=== PATIENT | female | born 1955 | race Caucasian/White ===

== ENCOUNTER 2018-09-30 09:33 | Emergency (ER) | payer OTHER, MEDICARE ==
[2018-09-30 09:48] VITALS: TEMP 97.6; BMI 26.3
--- NOTE | 2018-09-30 10:31 | PDOC ---
History of Present Illness - General Chief Complaint: Wheezing Stated Complaint: ASTHMA Time Seen by Provider: 09/30/18 10:28 History Source: Patient - History of Present Illness Timing/Duration: reports: other Associated Symptoms: reports: cough, shortness of breath, wheezing. denies: chest pain/soreness, fever/chills Past History - Past Medical History Allergies/Adverse Reactions: Allergies Allergy/AdvReac Type Severity Reaction Status Date / Time No Known Drug Allergies Allergy Verified 08/23/15 07:04 Home Medications: Ambulatory Orders Amlodipine Besylate [Norvasc -] 10 mg PO DAILY 01/30/15 Carvedilol 25 mg PO BID 01/30/15 Cetirizine HCl [Zyrtec -] 10 mg PO DAILY PRN 01/30/15 Digoxin [Lanoxin -] 0.125 mg PO DAILY 01/30/15 Budesonide [Pulmicort Flexhaler] 90 mcg IH BID PRN 01/31/15 Lisinopril/Hydrochlorothiazide [Lisinopril-Hctz 20-25 mg Tab] 1 each PO DAILY Albuterol 0.083% Nebulizer Eulalia [Ventolin 0.083% Nebulizer Soln -] 1 neb NEB Q6H PRN 08/09/15 Albuterol Sulfate [Proair Hfa] 8.5 gm IH DAILY PRN 09/30/18 Rivaroxaban [Xarelto -] 20 mg PO DAILY 09/30/18 Anemia: No Asthma: Yes Cancer: Yes (HX EARLY CERVICAL CA) Cardiac Disorders: Yes (AFIB) CVA: No COPD: Yes CHF: No Dementia: No Diabetes: No GI Disorders: No Disorders: No HTN: Yes Hypercholesterolemia: No Liver Disease: Yes (cirrhosis) Seizures: No Thyroid Disease: No - Surgical History Abdominal Surgery: No Appendectomy: Yes Cardiac Surgery: No Cholecystectomy: No Lung Surgery: No Neurologic Surgery: No Orthopedic Surgery: No - Immunization History Immunization Up to Date: No - Suicide/Smoking/Psychosocial Hx Smoking History: Never smoked Have you smoked in the past 12 months: No Number of Cigarettes Smoked Daily: 10 If you are a former smoker, when did you quit?: 3 years ago Information on smoking cessation initiated: No Hx Alcohol Use: No Drug/Substance Use Hx: No Substance Use Type: None Hx Substance Use Treatment: No Review of Systems - Review of Systems Constitutional: No: Chills, Fever Respiratory: Yes: Cough, Shortness of Breath, Wheezing Cardiac (ROS): No: Chest Pain *Physical Exam - Vital Signs Last Vital Signs Temp Pulse Resp BP Pulse Ox 97.6 F 67 16 111/67 95 09/30/18 09:45 09/30/18 09:45 09/30/18 09:45 09/30/18 09:45 09/30/18 09:45 - Physical Exam General Appearance: Yes: Appropriately Dressed. No: Apparent Distress HEENT: positive: Normal Voice Neck: positive: Supple Respiratory/Chest: positive: Lungs Clear, Normal Breath Sounds. negative: Respiratory Distress, Wheezing Cardiovascular: positive: Regular Rate, S1, S2 Gastrointestinal/Abdominal: positive: Soft. negative: Tender Extremity: negative: Pedal Edema Integumentary: positive: Dry, Warm Neurologic: positive: Fully Oriented, Alert, Normal Mood/Affect Moderate Sedation - Procedure Monitoring Vital Signs: Procedure Monitoring Vital Signs Temperature 97.6 F 09/30/18 09:45 Pulse Rate 67 09/30/18 09:45 Respiratory Rate 16 09/30/18 09:45 Blood Pressure 111/67 09/30/18 09:45 O2 Sat by Pulse Oximetry (%) 95 09/30/18 09:45 ED Treatment Course - LABORATORY CBC & Chemistry Diagram: 09/30/18 10:39 09/30/18 10:39 Medical Decision Making - Medical Decision Making 09/30/18 10:29 63 yo F, former smoker, COPD/asthma, not on oxygen, last admission for COPD was 2 years ago, no intubations, afib on xarelto, here w/ sob and wheezing in setting of "a cold" x 1 week per pt. No f/c. Called Dr plastic molding operator, Dr. Krishnamurthy , and was started on prednisone, which patient is currently taking, but states she continues to have some SOB and wheezing but that the reason why she came in today was for profound weakness she's had for the past several days which has improved today. Denies chest pain, lower extremity edema, abdominal pain, change in bowel movements, dysuria, fever, chills, nausea or vomiting See exam COPD/asthma flare Not improving w/ pednisone/pump/nebs at home Stable w/ clear lungs here -nebs -dose of pred today -CXR -labs -reassess 09/30/18 12:42 Pertinent labs...WBC ~13 (pt currently on prednisone). BG 200 (not a diabetic). CXR wnl. Pt reports feeling better at this time and able to ambulate without SOB. Case d/w Dr Krishnamurthy who states he will come see pt in ED 09/30/18 13:[address] Krishnamurthy who states pt can be discharged to continue her prednisone and to continue f/u with him *DC/Admit/Observation/Transfer Diagnosis at time of Disposition: SOB (shortness of breath) - Discharge Dispostion Disposition: HOME Condition at time of disposition: Improved - Referrals Referrals: Priyanka Pruitt [Primary Care Provider] - - Patient Instructions Printed Discharge Instructions: Chronic Obstructive Pulmonary Disease Additional Instructions: Continue taking medications and follow up with Dr Krishnamurthy Return if symptoms worsen You blood sugar was elevated today, please follow with your PMD for further evaluation - Post Discharge Activity
[2018-09-30] MEDS ORDERED: methylPREDNISolone NA SUCC 125 MG/2 ML VIAL IVPUSH ONE (10:54)
[2018-09-30 10:56] LABS: BASO % 0.8 % (0-2.0); EOS % 0.3 % (0-4.5); HEMATOCRIT 48.8 % (32.4-45.2); HEMOGLOBIN 16.3 GM/dL (10.7-15.3); LYMPH % 8.5 % (8-40); MCH 27.5 pg (25.7-33.7); MCHC 33.4 g/dl (32.0-36.0); MEAN CELL VOLUME 82.3 fl (80-96); MEAN PLT VOLUME 8.7 fl (7.5-11.1); MONO % 3.3 % (3.8-10.2); NEUT % 87.1 % (42.8-82.8); PLATELET COUNT 167 K/MM3 (134-434); RBC 5.93 M/mm3 (3.60-5.2); RDW 13.7 % (11.6-15.6); WHITE BLOOD COUNT 13.5 K/mm3 (4.0-10.0)
[2018-09-30 11:11] LABS: INR 1.46 (0.83-1.09); PROTHROMBIN TIME (PATIENT) 17.3 SEC (9.7-13.0)
[2018-09-30] MEDS ORDERED: ALBUTEROL SO4 2.5/IPRATROPIUM 0.5 INH SOL 3 ML VIAL.NEB. NEB ONE (11:23)
[2018-09-30] MEDS ORDERED: methylPREDNISolone NA SUCC 125 MG/2 ML VIAL ONE (11:24)
[2018-09-30 11:27] LABS: ALBUMIN 4.1 g/dl (3.4-5.0); ALK PHOS 61 U/L (45-117); ANION GAP 7 MMOL/L (8-16); BLOOD UREA NITROGEN 16 mg/dL (7-18); CALCIUM 9.8 mg/dL (8.5-10.1); CHLORIDE 94 mmol/L (98-107); CO2 31 mmol/L (21-32); CREATININE 0.8 mg/dL (0.55-1.3); GLUCOSE,RANDOM 203 mg/dL (74-106); N-TERMINAL BNP 375.2 pg/ml (5-125); POTASSIUM 4.6 mmol/L (3.5-5.1); SGOT/AST 45 U/L (15-37); SGPT/ALT 87 U/L (13-61); SODIUM 132 mmol/L (136-145); TOT PROT 8.2 g/dl (6.4-8.2)
[2018-09-30] MEDS: ALBUTEROL SO4 2.5/IPRATROPIUM 0.5 INH SOL 3 ML VIAL.NEB. NEB SCH ×4 (11:30→12:03)
[2018-09-30 13:02] LABS: URINE APPEARANCE SLCLOUDY; URINE BILIRUBIN NEGATIVE (<2.0 mg/dL); URINE COLOR YELLOW; URINE GLUCOSE (UA) NEGATIVE (NEGATIVE); URINE KETONE NEGATIVE (NEGATIVE); URINE LEUK ESTERASE 3+ (NEGATIVE); URINE NITRITE POSITIVE (NEGATIVE); URINE PROTEIN NEGATIVE (NEGATIVE); URINE UROBILINOGEN NEGATIVE mg/dL (0.2-1.0)
[2018-09-30 13:18] LABS: EPI CELLS FEW /HPF (FEW); URINE BACTERIA MODERATE /hpf (NONE SEEN); URINE MUCUS RARE
[2018-09-30 13:28] VITALS: BP 111/76; PULSE 65
--- NOTE | 2018-09-30 14:37 | EKG ---
Test Reason : Blood Pressure : / mmHG Vent. Rate : 101 BPM Atrial Rate : 136 BPM P-R Int : 000 ms QRS Dur : 086 ms QT Int : 350 ms P-R-T Axes : 000 035 225 degrees QTc Int : 453 ms ATRIAL FIBRILLATION WITH RAPID VENTRICULAR RESPONSE ABNORMAL ECG WHEN COMPARED WITH ECG OF 09-AUG-2015 12:16, VENT. RATE HAS INCREASED Confirmed by BRITTANY SALTER MD ([id number]) on 09/30/2018 2:36:55 PM Referred By: Confirmed By:BRITTANY SALTER MD
== END 2018-09-30 14:12 | disposition home or self-care (01) ==
LOC: JER 09:33
PROC: 3E0F7GC Introduction of Other Therapeutic Substance into Respiratory Tract, Via Natural or Artificial Opening (ICD-10-PCS; principal; 2018-09-30)
PROC: 3E0333Z Introduction of Anti-inflammatory into Peripheral Vein, Percutaneous Approach (ICD-10-PCS; 2018-09-30)
DX: J44.9 Chronic obstructive pulmonary disease, unspecified (principal); J45.998 Other asthma; I10 Essential (primary) hypertension; I48.91 Unspecified atrial fibrillation; Z79.01 Long term (current) use of anticoagulants; K74.60 Unspecified cirrhosis of liver; Z85.41 Personal history of malignant neoplasm of cervix uteri
CPT/HCPCS: 36415; 71046-TC-FY; 80053; 81003; 81015; 82550; 83880; 84484; 85025; 85610; 87804; 93005; 93010; 94640; 96374; 99282-25

== ENCOUNTER 2020-03-10 13:45 | Inpatient (IN) | payer OTHER, MEDICARE ==
--- NOTE | 2020-03-10 14:11 | PDOC ---
Rapid Medical Evaluation Chief Complaint: Shortness of Breath Time Seen by Provider: 03/10/20 13:53 Medical Evaluation: Allergies Allergy/AdvReac Type Severity Reaction Status Date / Time No Known Drug Allergies Allergy Verified 03/10/20 13:55 Vital Signs Temp Pulse Resp BP Pulse Ox 98.4 F 62 19 114/52 L 94 L 03/10/20 13:53 03/10/20 13:53 03/10/20 13:53 03/10/20 13:53 03/10/20 13:53 03/10/20 13:55 I have performed a brief in-person evaluation of this patient. The patient presents with a chief complaint of:h/o asthma, here w/ sob and tightness despite being on steroids Pertinent physical exam findings:sating 94% on RA I have ordered the following:labs/cxr/ekg The patient will proceed to the ED for further evaluation. Discharge Disposition - Diagnosis SOB (shortness of breath) - Referrals - Patient Instructions - Post Discharge Activity
--- NOTE | 2020-03-10 14:58 | PDOC ---
History of Present Illness - General Chief Complaint: Shortness of Breath Stated Complaint: ASTHMA / SWELLING Time Seen by Provider: 03/10/20 13:53 - History of Present Illness Initial Comments: Skylar Carranza is a 64 y/o female with PMH significant for asthma, COPD, a-fib on xarelto, cervical CA s/p hysterectomy, pulmonary nodule s/p resection, presenting today with shortness of breath. Reports that she had an asthma ex acerbation two weeks ago and feels continued shortness of breath on exertion and mildly at rest. No chest pain/tightness. No headache/dizziness. No abd pain. No back pain. No fever/chills. No dysuria/diarrhea. SocHx: 30 pack year smoking hx Past History - Medical History Allergies/Adverse Reactions: Allergies Allergy/AdvReac Type Severity Reaction Status Date / Time No Known Drug Allergies Allergy Verified 03/10/20 13:55 Home Medications: Ambulatory Orders Amlodipine Besylate [Norvasc -] 10 mg PO DAILY 01/30/15 Carvedilol 25 mg PO BID 01/30/15 Cetirizine HCl [Zyrtec -] 10 mg PO DAILY PRN 01/30/15 Digoxin [Lanoxin -] 0.125 mg PO DAILY 01/30/15 Budesonide [Pulmicort Flexhaler] 90 mcg IH BID PRN 01/31/15 Lisinopril/Hydrochlorothiazide [Lisinopril-Hctz 20-25 mg Tab] 1 each PO DAILY 01/31/15 Albuterol 0.083% Nebulizer Eulalia [Ventolin 0.083% Nebulizer Soln -] 1 neb NEB Q6H PRN 08/09/15 Albuterol Sulfate [Proair Hfa] 8.5 gm IH DAILY PRN 09/30/18 Rivaroxaban [Xarelto -] 20 mg PO DAILY 09/30/18 Anemia: No Asthma: Yes Cancer: Yes (HX EARLY CERVICAL CA) Cardiac Disorders: Yes (AFIB) CVA: No COPD: No CHF: No Dementia: No Diabetes: No GI Disorders: No Disorders: No HTN: Yes Hypercholesterolemia: No Liver Disease: Yes (cirrhosis) Seizures: No Thyroid Disease: No - Surgical History Abdominal Surgery: No Appendectomy: Yes Cardiac Surgery: No Cholecystectomy: No Lung Surgery: No Neurologic Surgery: No Orthopedic Surgery: No - Immunization History Immunization Up to Date: No - Psycho-Social/Smoking History Smoking History: Never smoked Have you smoked in the past 12 months: No Number of Cigarettes Smoked Daily: 10 If you are a former smoker, when did you quit?: 3 years ago Information on smoking cessation initiated: No - Substance Abuse Hx (Audit-C & DAST Scrn) How often the patient has a drink containing alcohol: Never Score: In Men: 4 or > Positive; In Women: 3 or > Positive: 0 Screen Result (Pos requires Nsg. Audit-10AR): Negative In the last yr the pt used illegal drug/Rx for NonMed reason: No Score: Yes response is considered Positive: 0 Screen Result (Positive result requires Nsg. DAST-10): Negative Review of Systems - Review of Systems Comments:: GENERAL/CONSTITUTIONAL: No fever or chills. No weakness._ HEAD, EYES, EARS, NOSE AND THROAT: No change in vision. No change in hearing. No sore throat._ CARDIOVASCULAR: No chest pain. Reports shortness of breath. RESPIRATORY: Denies cough, hemoptysis_ GASTROINTESTINAL: No nausea, vomiting, diarrhea or constipation._ GENITOURINARY: No dysuria, frequency, or change in urination._ MUSCULOSKELETAL: No joint or muscle swelling or pain. No neck or back pain._ SKIN: No rash_ NEUROLOGIC: No headache, vertigo, loss of consciousness, or change in strength/sensation._ ENDOCRINE: No increased thirst. No abnormal weight change_ HEMATOLOGIC/LYMPHATIC: No anemia, easy bleeding, or history of blood clots._ ALLERGIC/IMMUNOLOGIC: No hives or skin allergy._ *Physical Exam - Vital Signs Last Vital Signs Temp Pulse Resp BP Pulse Ox 98.4 F 62 19 114/52 L 94 L 03/10/20 13:53 03/10/20 13:53 03/10/20 13:53 03/10/20 13:53 03/10/20 13:53 - Physical Exam GENERAL: Awake, alert, and oriented to person/place/time, in no acute distress_ HEAD: No signs of trauma, normocephalic, atraumatic _ EYES: PERRLA, EOMI, sclera anicteric, conjunctiva clear_ ENT: Hearing grossly normal, nares patent, oropharynx clear without exudates. No uvular deviation. Moist mucosa_ NECK: Normal ROM, supple, no lymphadenopathy, JVD, or masses_ LUNGS: No distress, speaks in full sentences, faint wheeze in the right lower lung field. HEART: Regular rate and rhythm, normal S1 and S2, no murmurs appreciated, peripheral pulses normal and equal bilaterally._ ABDOMEN: Soft, nontender, normoactive bowel sounds. No guarding, no rebound. No masses_ EXTREMITIES: Normal inspection, Normal range of motion, no edema. No clubbing or cyanosis_ NEUROLOGICAL: Cranial nerves II through XII grossly intact. Normal speech, normal gait, no focal sensorimotor deficits _ SKIN: Warm, Dry, normal turgor, no rashes or lesions noted_ ED Treatment Course - LABORATORY CBC & Chemistry Diagram: 03/10/20 14:59 03/10/20 14:59 Medical Decision Making - Medical Decision Making 64F presenting today with asthma exacerbation and shortness of breath worse on exertion for the past week. DDx includes PE vs asthma exacerbation vs COPD exacerbation vs r/o ACS. -cbc/cmp -coags -CXR -ekg 03/10/20 18:06 CXR negative for acute chest pathology. EKG shows 65 bpm, atrial fibrillation (known), no axis deviation, QTc 393, no ST elevation. Labs reviewed. Laboratory Last Values WBC 14.6 K/mm3 (4.0-10.0) H 03/10/20 14:59 RBC 5.26 M/mm3 (3.60-5.2) H 03/10/20 14:59 Hgb 11.0 GM/dL (10.7-15.3) 03/10/20 14:59 Hct 36.1 % (32.4-45.2) D 03/10/20 14:59 MCV 68.6 fl (80-96) L 03/10/20 14:59 MCH 20.8 pg (25.7-33.7) L D 03/10/20 14:59 MCHC 30.4 g/dl (32.0-36.0) L 03/10/20 14:59 RDW 16.3 % (11.6-15.6) H 03/10/20 14:59 Plt Count 306 K/MM3 (134-434) D 03/10/20 14:59 MPV 7.6 fl (7.5-11.1) D 03/10/20 14:59 Absolute Neuts (auto) 13.3 K/mm3 (1.5-8.0) H 03/10/20 14:59 Total Counted 100 03/10/20 14:59 Neutrophils % 91.0 % (42.8-82.8) H 03/10/20 14:59 Neutrophils % (Manual) 90.9 % (42.8-82.8) H 03/10/20 14:59 Band Neutrophils % 0.0 % 03/10/20 14:59 Lymphocytes % 4.2 % (8-40) L D 03/10/20 14:59 Lymphocytes % (Manual) 3.0 % (8-40) L 03/10/20 14:59 Monocytes % 4.4 % (3.8-10.2) 03/10/20 14:59 Monocytes % (Manual) 5 % (3.8-10.2) 03/10/20 14:59 Eosinophils % 0.1 % (0-4.5) 03/10/20 14:59 Eosinophils % (Manual) 0.0 % (0-4.5) 03/10/20 14:59 Basophils % 0.3 % (0-2.0) 03/10/20 14:59 Basophils % (Manual) 1.0 % (0-2.0) 03/10/20 14:59 Myelocytes % (Man) 0 % (0-2) 03/10/20 14:59 Promyelocytes % (Man) 0 % (0-2) 03/10/20 14:59 Blast Cells % (Manual) 0 % (0-0) 03/10/20 14:59 Nucleated RBC % 0 % (0-0) 03/10/20 14:59 Metamyelocytes 0 % (0-2) 03/10/20 14:59 Smudge Cells 3 03/10/20 14:59 Hypochromia 0 03/10/20 14:59 Platelet Estimate Normal 03/10/20 14:59 Polychromasia 0 03/10/20 14:59 Poikilocytosis 0 03/10/20 14:59 Anisocytosis 3+ 03/10/20 14:59 Microcytosis 3+ 03/10/20 14:59 Macrocytosis 0 03/10/20 14:59 Sodium 125 mmol/L (136-145) L 03/10/20 14:59 Potassium 4.5 mmol/L (3.5-5.1) 03/10/20 14:59 Chloride 86 mmol/L (98-107) L 03/10/20 14:59 Carbon Dioxide 31 mmol/L (21-32) 03/10/20 14:59 Anion Gap 8 MMOL/L (8-16) 03/10/20 14:59 BUN 13.4 mg/dL (7-18) 03/10/20 14:59 Creatinine 0.7 mg/dL (0.55-1.3) 03/10/20 14:59 Est GFR (CKD-EPI)AfAm 104.64 03/10/20 14:59 Est GFR (CKD-EPI)NonAf 90.29 03/10/20 14:59 Random Glucose 183 mg/dL (74-106) H 03/10/20 14:59 Calcium 9.5 mg/dL (8.5-10.1) 03/10/20 14:59 Total Bilirubin 0.8 mg/dL (0.2-1) 03/10/20 14:59 AST 28 U/L (15-37) 03/10/20 14:59 ALT 42 U/L (13-61) 03/10/20 14:59 Alkaline Phosphatase 52 U/L (45-117) 03/10/20 14:59 Creatine Kinase 56 U/L (26-192) 03/10/20 14:59 Troponin I < 0.02 ng/ml (0.00-0.05) 03/10/20 14:59 Total Protein 7.8 g/dl (6.4-8.2) 03/10/20 14:59 Albumin 3.9 g/dl (3.4-5.0) 03/10/20 14:59 03/10/20 18:33 CTA shows no evidence of pulmonary embolism, elevated left hemidiaphragm with basilar atelectasis, mild upper abdominal and retrocrural lymphadenopathy. 03/10/20 19:00 Pt s/o to Dr. House pending admission for hypoxia. Discharge - Discharge Information Problems reviewed: Yes Clinical Impression/Diagnosis: SOB (shortness of breath) Condition: Stable - Admission Yes - Follow up/Referral - Patient Discharge Instructions - Post Discharge Activity
[2020-03-10 15:03] LABS: BASO % 0.3 % (0-2.0); EOS % 0.1 % (0-4.5); HEMATOCRIT 36.1 % (32.4-45.2); LYMPH % 4.2 % (8-40); MCH 20.8 pg (25.7-33.7); MCHC 30.4 g/dl (32.0-36.0); MEAN CELL VOLUME 68.6 fl (80-96); MEAN PLT VOLUME 7.6 fl (7.5-11.1); MONO % 4.4 % (3.8-10.2); PLATELET COUNT 306 K/MM3 (134-434); RBC 5.26 M/mm3 (3.60-5.2); RDW 16.3 % (11.6-15.6); WHITE BLOOD COUNT 14.6 K/mm3 (4.0-10.0)
[2020-03-10 15:35] LABS: ALBUMIN 3.9 g/dl (3.4-5.0); ALK PHOS 52 U/L (45-117); ANION GAP 8 MMOL/L (8-16); BILIRUBIN,TOTAL 0.8 mg/dL (0.2-1); BLOOD UREA NITROGEN 13.4 mg/dL (7-18); CALCIUM 9.5 mg/dL (8.5-10.1); CHLORIDE 86 mmol/L (98-107); CO2 31 mmol/L (21-32); CREATININE 0.7 mg/dL (0.55-1.3); GLUCOSE,RANDOM 183 mg/dL (74-106); MACROCYTOSIS 0; PLATELET ESTIMATE NORMAL; POTASSIUM 4.5 mmol/L (3.5-5.1); SGOT/AST 28 U/L (15-37); SGPT/ALT 42 U/L (13-61); SMUDGE CELLS 3; SODIUM 125 mmol/L (136-145); TOT PROT 7.8 g/dl (6.4-8.2)
[2020-03-10 15:36] LABS: ANISOCYTOSIS 3+
--- NOTE | 2020-03-10 16:22 | PDOC ---
Documentation entered by Dina Ferrari SCRIBE, acting as scribe for Aaron Avery MD. Aaron Avery MD: This documentation has been prepared by the Vega ortiz Ana, SCRIBE, under my direction and personally reviewed by me in its entirety. I confirm that the documentation accurately reflects all work, treatment, procedures, and medical decision making performed by me. Attending Attestation - Resident Resident Name: ManjinderKyle - ED Attending Attestation I have performed the following: I have examined & evaluated the patient, The case was reviewed & discussed with the resident, I agree w/resident's findings & plan, Exceptions are as noted - HPI HPI: 03/10/20 14:51 Patient is a year old female with a significant past medical history of smoking (quit 8 years ago), previous appendectomy, cervical CA s/p hysterectomy, pulmonary nodule s/p resection, asthma, AFIB, hypertension, liver cirrhosis and psoarisis, and COPD, who presents to the ED with SOB x2 weeks. Patient stated she had an asthma attack 2 weeks ago and has felt SOB ever since which is mild at rest and gets worse upon exertion. Patient denies: recreational drug use, fever, chills, headache, dizziness, chest pain, chest tightness, abdominal pain, back pain, dysuria, diarrhea, or any other related symptoms. Allergies: NKDA Social history: Patient is a social drinker Family history: Mother-breast cancer; Father-emphysema; Brother- from heroine abuse PCP: Dr. Cuauhtemoc Krishnamurthy - Physicial Exam PE: 03/10/20 14:52 See resident exam - Medical Decision Making 03/10/20 16:23 64 F with SOB. Mildly hypoxic in ED. No audible wheezes on exam. - Labs - CXR - Consider CTA Discharge - Discharge Information Problems reviewed: Yes Clinical Impression/Diagnosis: SOB (shortness of breath) Condition: Stable Disposition: HOME - Follow up/Referral - Patient Discharge Instructions - Post Discharge Activity
[2020-03-10] MEDS ORDERED: ALBUTEROL SO4 HFA INHALER IH ONE ×2 (19:45→21:01)
[2020-03-10] MEDS ORDERED: SODIUM CHLORIDE 500 ML IV STA (19:45)
--- NOTE | 2020-03-10 19:50 | HP ---
Admitting History and Physical - Primary Care Physician PCP: Cuauhtemoc Krishnamurthy - Admission Chief Complaint: SOB, Wheezing History of Present Illness: This is a 64 y/o female with a PMHx of Asthma, COPD, Afib (Xarelto), Cervical Ca s/p hysterectomy, Pulmonary nodule s/p resection. Who presents to the ED with progressive SOB, wheezing x today. Patient reports being treated for Asthma currently on steroids without improvement. Patient denies fever, chills, IQBAL, dizziness, CP, palpitations, AP, N/V/D, constipation, dysuria. Patient denies sick contacts or recent travel. History Source: Patient Limitations to Obtaining History: No Limitations - Past Medical History Cardiovascular: Yes: AFIB, HTN Pulmonary: Yes: Asthma, COPD, Other (Pulmonary Nodule) Hepatobiliary: Yes: Cirrhosis (secondary Hep C) Reproductive: Yes: Other (Cervical Ca) Dermatology: Yes: Psoriasis - Past Surgical History Past Surgical History: Yes: Hysterectomy Additional Past Surgical History: Lung Nodule Resection - Smoking History Smoking history: Former smoker Have you smoked in the past 12 months: No Aproximately how many cigarettes per day: 10 (30 pack year hx) If you are a former smoker, when did you quit?: 3 years ago - Alcohol/Substance Use Hx Alcohol Use: No History of Substance Use: reports: None - Social History Usual Living Arrangement: Yes: Alone ADL: Independent 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[employer] History of Recent Travel: No Home Medications - Allergies Allergies/Adverse Reactions: Allergies Allergy/AdvReac Type Severity Reaction Status Date / Time No Known Drug Allergies Allergy Verified 03/10/20 13:55 - Home Medications Home Medications: Ambulatory Orders Amlodipine Besylate [Norvasc -] 10 mg PO DAILY 01/30/15 Carvedilol 25 mg PO BID 01/30/15 Cetirizine HCl [Zyrtec -] 10 mg PO DAILY PRN 01/30/15 Digoxin [Lanoxin -] 0.125 mg PO DAILY 01/30/15 Budesonide [Pulmicort Flexhaler] 90 mcg IH BID PRN 01/31/15 Lisinopril/Hydrochlorothiazide [Lisinopril-Hctz 20-25 mg Tab] 1 each PO DAILY 01/31/15 Albuterol 0.083% Nebulizer Eulalia [Ventolin 0.083% Nebulizer Soln -] 1 neb NEB Q6H PRN 08/09/15 Albuterol Sulfate [Proair Hfa] 8.5 gm IH DAILY PRN 09/30/18 Rivaroxaban [Xarelto -] 20 mg PO DAILY 09/30/18 Family Medical History Family Hx Cancer: Mother (Breast) Family Hx Respiratory Disorders: Father (Emphysema) Other Family History: Brother- Heroin Abuse, Review of Systems - Review of Systems Constitutional: reports: No Symptoms Eyes: reports: No Symptoms HENT: reports: No Symptoms Neck: reports: No Symptoms Cardiovascular: reports: Shortness of Breath Respiratory: reports: SOB, SOB on Exertion, Wheezing Gastrointestinal: reports: No Symptoms Genitourinary: reports: No Symptoms Breasts: reports: No Symptoms Reported Musculoskeletal: reports: No Symptoms Integumentary: reports: No Symptoms Neurological: reports: No Symptoms Endocrine: reports: No Symptoms Hematology/Lymphatic: reports: No Symptoms Psychiatric: reports: No Symptoms Pain Intensity: 0 Physical Examination Vital Signs: Vital Signs Temperature 98.4 F 03/10/20 13:53 Pulse Rate 62 03/10/20 13:53 Respiratory Rate 19 03/10/20 13:53 Blood Pressure 114/52 L 03/10/20 13:53 O2 Sat by Pulse Oximetry (%) 94 L 03/10/20 13:53 Constitutional: Yes: No Distress, Calm Eyes: Yes: WNL, Conjunctiva Clear, EOM Intact, PERRL HENT: Yes: WNL, Atraumatic, Normocephalic Neck: Yes: WNL, Supple, Trachea Midline Cardiovascular: Yes: WNL, Regular Rate and Rhythm, S1, S2 Respiratory: Yes: Diminished, Rhonchi, Wheezes Gastrointestinal: Yes: WNL, Normal Bowel Sounds, Soft ...Rectal Exam: Yes: Deferred Renal/: Yes: WNL Breast(s): Yes: WNL Musculoskeletal: Yes: WNL Extremities: Yes: WNL Edema: No Peripheral Pulses WNL: Yes Integumentary: Yes: WNL Neurological: Yes: WNL, Alert, Oriented, Cran Nerves II-XII Intact ...Motor Strength: WNL Psychiatric: Yes: WNL, Alert, Oriented Labs: CBC, BMP 03/10/20 14:59 03/10/20 14:59 Laboratory Results - last 24 hr 03/10/20 03/10/20 14:59 14:59 WBC 14.6 H RBC 5.26 H Hgb 11.0 Hct 36.1 D MCV 68.6 L MCH 20.8 L D MCHC 30.4 L RDW 16.3 H Plt Count 306 D MPV 7.6 D Absolute Neuts (auto) 13.3 H Total Counted 100 Neutrophils % 91.0 H Neutrophils % (Manual) 90.9 H Band Neutrophils % 0.0 Lymphocytes % 4.2 L D Lymphocytes % (Manual) 3.0 L Monocytes % 4.4 Monocytes % (Manual) 5 Eosinophils % 0.1 Eosinophils % (Manual) 0.0 Basophils % 0.3 Basophils % (Manual) 1.0 Myelocytes % (Man) 0 Promyelocytes % (Man) 0 Blast Cells % (Manual) 0 Nucleated RBC % 0 Metamyelocytes 0 Smudge Cells 3 Hypochromia 0 Platelet Estimate Normal Polychromasia 0 Poikilocytosis 0 Anisocytosis 3+ Microcytosis 3+ Macrocytosis 0 Sodium 125 L Potassium 4.5 Chloride 86 L Carbon Dioxide 31 Anion Gap 8 BUN 13.4 Creatinine 0.7 Est GFR (CKD-EPI)AfAm 104.64 Est GFR (CKD-EPI)NonAf 90.29 Random Glucose 183 H Calcium 9.5 Total Bilirubin 0.8 AST 28 ALT 42 Alkaline Phosphatase 52 Creatine Kinase 56 Troponin I < 0.02 Total Protein 7.8 Albumin 3.9 Intake & Output 03/08/20 03/09/20 03/10/20 03/11/20 23:59 23:59 23:59 23:59 Weight 77.111 kg Current Medications Generic Name Dose Route Start Last Admin Trade Name Romuloq PRN Reason Stop Dose Admin Albuterol Sulfate 2 puff 03/10/20 21:32 Ventolin Hfa Inhaler - IH Q4H PRN SHORT OF BREATH/WHEEZING Amlodipine Besylate 10 mg 03/11/20 10:00 Norvasc - PO DAILY DAVID Budesonide/Formoterol Fumarate 2 puff 03/11/20 10:00 Symbicort 160/4.5mcg - IH BID DAVID Carvedilol 25 mg 03/10/20 22:00 03/10/20 23:43 Coreg - PO 25 mg BID DAVID Administration Digoxin 0.125 mg 03/11/20 10:00 Lanoxin - PO DAILY DAVID Lisinopril 20 mg 03/11/20 10:00 Prinivil PO DAILY [facility] Methylprednisolone Sodium Succinate 40 mg 03/11/20 06:15 Solu-Medrol - IVPUSH Q6H-IV DAVID Rivaroxaban 20 mg 03/10/20 22:45 03/10/20 23:43 Xarelto PO 20 mg DAILY@1800 DAVID Administration Imaging - Results Chest X-ray: Report Reviewed, Image Reviewed Cat Scan: Report Reviewed, Image Reviewed EKG: Image Reviewed Problem List - Problems (1) Asthma exacerbation Assessment/Plan: Likely secondary to Failed Outpatient Therapy vs PE Chest Xray image, report reviewed- no acute pathology or significant change CTA image, report reviewed- no evidence of PE, elevated hemidiaphragm with basilar atelectasis, mild adenopathy present on prior study 07/09/2017 Appreciate Pulmonology consult Albuterol MDI will avoid nebulizer- r/o COVID Solumederol IV with taper Continue Symbicort O2 Peak Flow Monitor CBC, CMP Monitor vitals Code(s): J45.901 - UNSPECIFIED ASTHMA WITH (ACUTE) EXACERBATION (2) COPD (chronic obstructive pulmonary disease) Assessment/Plan: ? Acute Flare, likely due to Asthma Exacerbation Continue home meds Appreciate Pulmonology consult Code(s): J44.9 - CHRONIC OBSTRUCTIVE PULMONARY DISEASE, UNSPECIFIED (3) Hyponatremia Assessment/Plan: Likely due to medication vs SIADH Na Deficit 526 NS bolus given in ED Serum Osmo, Urine Osmo, Na Spot, Urine Lytes Appreciate Nephrology consult Na goal 6-8meq/24hr Monitor CMP Gentle IVF Seizure Precautions Code(s): E87.1 - HYPO-OSMOLALITY AND HYPONATREMIA (4) Leukocytosis Assessment/Plan: Likely due to recent Steroid use vs Infection vs Malignancy +Neutrophilia Pt is afebrile Blood Cultures x2-pending Will defer ABX for now, watch and wait Monitor CBC Monitor vitals Code(s): D72.829 - ELEVATED WHITE BLOOD CELL COUNT, UNSPECIFIED (5) A-fib Assessment/Plan: stable [id number] 3 EKG reviewed Continue home meds with parameters Code(s): I48.91 - UNSPECIFIED ATRIAL FIBRILLATION (6) HTN (hypertension) Assessment/Plan: stable Monitor BP Continue home med Monitor renal function Code(s): I10 - ESSENTIAL (PRIMARY) HYPERTENSION (7) Elevated glucose level Assessment/Plan: Likely due to recent steroid use Code(s): R73.09 - OTHER ABNORMAL GLUCOSE (8) Encounter for screening laboratory testing for COVID-19 virus Assessment/Plan: 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 Admitted to [facility] for Asthma Exacerbation, Hyponatremia for further evaluation of their emergent condition. Plan: See Problem List FEN NS@42ml/hr Replete lytes prn Low Na Diet DVT ppx OOB SCDs Continue Xarelto Dispo: Requires Inpatient Care Visit type - Medication Review Med list reviewed for High Risk Meds patients 65 and older: Yes - Emergency Visit Emergency Visit: Yes ED Registration Date: 03/10/20 Care time: The patient presented to the Emergency Department on the above date and was hospitalized for further evaluation of their emergent condition. - New Patient This patient is new to me today: Yes Date on this admission: 03/10/20 - Critical Care Critical Care patient: No
[2020-03-10] MEDS ORDERED: ALBUTEROL SO4 HFA INHALER IH PRN (21:32)
[2020-03-10] MEDS ORDERED: RIVAROXABAN 20 MG TABLET PO SCH (22:26)
[2020-03-10] MEDS ORDERED: CARVEDILOL 12.5 MG TABLET (FP) ONE (23:33)
[2020-03-10] MEDS: CARVEDILOL 25 MG TABLET (FP) PO SCH (23:43)
[2020-03-10] MEDS: RIVAROXABAN 20 MG TABLET PO SCH (23:43)
[2020-03-11] MEDS ORDERED: SODIUM CHLORIDE 1,000 ML IV SCH (06:45)
[2020-03-11] MEDS ORDERED: methylPREDNISolone NA SUCC 40 MG/1 ML VIAL ONE ×2 (06:52→11:37)
[2020-03-11] MEDS: methylPREDNISolone NA SUCC 40 MG/1 ML VIAL IVPUSH SCH ×4 (06:56→21:02)
[2020-03-11 07:21] LABS: BASO % 0.6 % (0-2.0); EOS % 1.7 % (0-4.5); HEMATOCRIT 34.5 % (32.4-45.2); HEMOGLOBIN 10.6 GM/dL (10.7-15.3); LYMPH % 11.7 % (8-40); MCH 20.9 pg (25.7-33.7); MCHC 30.6 g/dl (32.0-36.0); MEAN CELL VOLUME 68.2 fl (80-96); MONO % 9.3 % (3.8-10.2); NEUT % 76.7 % (42.8-82.8); PLATELET COUNT 132 K/MM3 (134-434); RBC 5.06 M/mm3 (3.60-5.2); RDW 16.4 % (11.6-15.6); WHITE BLOOD COUNT 9.3 K/mm3 (4.0-10.0)
--- NOTE | 2020-03-11 07:26 | CONSULT ---
Consult Consult Specialty:: Nephrology Reason for Consultation:: hyponatremia - History of Present Illness Chief Complaint: sob and wheezing History of Present Illness: Pt is a 64 year old female with pmhx of asthma, copd, a-fib, cervical cancer, and pulm nodule who presents with shortness of breath and wheeze. She was found to have hyponatremia and I was called to evaluate her. She drinks about 2 liters of water daily. She is on hctz at home. She says it was recently started. She says that her bp runs low. She denies headache or change in vision. she denies loss of balance. - History Source History Provided By: Patient - Past Medical History Cardio/Vascular: Yes: AFIB, HTN Pulmonary: Yes: Asthma, COPD, Other (Pulmonary Nodule) Hepatobiliary: Yes: Cirrhosis (secondary Hep C) Dermatology: Yes: Psoriasis - Past Surgical History Past Surgical History: Yes: Hysterectomy - Alcohol/Substance Use Hx Alcohol Use: No History of Substance Use: reports: None - Smoking History Smoking history: Former smoker Have you smoked in the past 12 months: No Aproximately how many cigarettes per day: 10 (30 pack year hx) If you are a former smoker, when did you quit?: 3 years ago - Social History ADL: Independent Occupation: Project [employer] History of Recent Travel: No Home Medications - Allergies Allergies/Adverse Reactions: Allergies Allergy/AdvReac Type Severity Reaction Status Date / Time No Known Drug Allergies Allergy Verified 03/10/20 13:55 - Home Medications Home Medications: Ambulatory Orders Amlodipine Besylate [Norvasc -] 10 mg PO DAILY 01/30/15 Carvedilol 25 mg PO BID 01/30/15 Cetirizine HCl [Zyrtec -] 10 mg PO DAILY PRN 01/30/15 Digoxin [Lanoxin -] 0.125 mg PO DAILY 01/30/15 Budesonide [Pulmicort Flexhaler] 90 mcg IH BID PRN 01/31/15 Lisinopril/Hydrochlorothiazide [Lisinopril-Hctz 20-25 mg Tab] 1 each PO DAILY 01/31/15 Albuterol 0.083% Nebulizer Eulalia [Ventolin 0.083% Nebulizer Soln -] 1 neb NEB Q6H PRN 08/09/15 Albuterol Sulfate [Proair Hfa] 8.5 gm IH DAILY PRN 09/30/18 Rivaroxaban [Xarelto -] 20 mg PO DAILY 09/30/18 Family Medical History Family History: Denies Review of Systems - Review of Systems Constitutional: reports: No Symptoms Eyes: reports: No Symptoms HENT: reports: No Symptoms Neck: reports: No Symptoms Cardiovascular: reports: No Symptoms Respiratory: reports: SOB on Exertion, Wheezing Gastrointestinal: reports: No Symptoms Genitourinary: reports: No Symptoms Musculoskeletal: reports: No Symptoms Integumentary: reports: No Symptoms Neurological: reports: No Symptoms Endocrine: reports: No Symptoms Hematology/Lymphatic: reports: No Symptoms Psychiatric: reports: No Symptoms Physical Exam Vital Signs: Vital Signs Temperature 97.8 F 03/11/20 06:00 Pulse Rate 58 L 03/11/20 06:00 Respiratory Rate 18 03/11/20 06:00 Blood Pressure 114/81 03/11/20 06:00 O2 Sat by Pulse Oximetry (%) 95 03/11/20 06:00 Constitutional: Yes: Calm Eyes: Yes: Conjunctiva Clear HENT: Yes: Atraumatic Neck: Yes: Supple Cardiovascular: Yes: S1, S2 Respiratory: Yes: Wheezes Gastrointestinal: Yes: Soft Renal/: Yes: WNL Musculoskeletal: Yes: WNL Edema: No Neurological: Yes: Oriented Psychiatric: Yes: Oriented Imaging - Results X-ray: Report Reviewed Problem List - Problems (1) A-fib Code(s): I48.91 - UNSPECIFIED ATRIAL FIBRILLATION (2) COPD (chronic obstructive pulmonary disease) Code(s): J44.9 - CHRONIC OBSTRUCTIVE PULMONARY DISEASE, UNSPECIFIED (3) HTN (hypertension) Code(s): I10 - ESSENTIAL (PRIMARY) HYPERTENSION (4) Hyponatremia Code(s): E87.1 - HYPO-OSMOLALITY AND HYPONATREMIA Assessment/Plan Current Medications Generic Name Dose Route Start Last Admin Trade Name Freq PRN Reason Stop Dose Admin Albuterol Sulfate 2 puff 03/10/20 21:32 Ventolin Hfa Inhaler - IH Q4H PRN SHORT OF BREATH/WHEEZING Amlodipine Besylate 10 mg 03/11/20 10:00 Norvasc - PO DAILY DAVID Budesonide/Formoterol Fumarate 2 puff 03/11/20 10:00 Symbicort 160/4.5mcg - IH BID DAVID Carvedilol 25 mg 03/10/20 22:00 07/22/20 23:43 Coreg - PO 25 mg BID DAVID Administration Digoxin 0.125 mg 03/11/20 10:00 Lanoxin - PO DAILY [facility] Sodium Chloride 1,000 mls @ 42 mls/hr 03/11/20 06:45 Normal Saline - IV ASDIR DAVID Lisinopril 20 mg 03/11/20 10:00 Prinivil PO DAILY [facility] Methylprednisolone Sodium Succinate 40 mg 03/11/20 06:45 03/11/20 06:56 Solu-Medrol - IVPUSH 40 mg Q6H-IV DAVID Administration Rivaroxaban 20 mg 03/10/20 22:45 03/10/20 23:43 Xarelto PO 20 mg DAILY@1800 DAVID Administration Impression 1. hyponatremia 2. a-fib 3. htn 4. copd 5. cervical cancer 6. lung nodule Plan - stop hctz - stop amlodipine - cont coreg and lisinopril - check palsma and urine osm - sodium improving - avoid a change of greater than 8 in 24 hours - decrease rate of fluids
[2020-03-11 08:03] LABS: ALBUMIN 3.7 g/dl (3.4-5.0); BILIRUBIN,TOTAL 0.9 mg/dL (0.2-1); BLOOD UREA NITROGEN 9.9 mg/dL (7-18); CALCIUM 9.2 mg/dL (8.5-10.1); CREATININE 0.5 mg/dL (0.55-1.3); MAGNESIUM 2.3 mg/dL (1.8-2.4); N-TERMINAL BNP 457.3 pg/ml (5-125); POTASSIUM 3.8 mmol/L (3.5-5.1)
[2020-03-11] MEDS ORDERED: LISINOPRIL 20 MG TABLET (FP) PO SCH (10:00)
[2020-03-11] MEDS ORDERED: amLODIPine BESYLATE 10 MG TABLET (FP) PO SCH (10:00)
[2020-03-11] MEDS ORDERED: DIGOXIN 0.125 MG TABLET (FP) ONE (10:49)
[2020-03-11] MEDS: DIGOXIN 0.125 MG TABLET (FP) PO SCH (10:50)
[2020-03-11] MEDS ORDERED: LISINOPRIL 20 MG TABLET (FP) ONE (11:35)
[2020-03-11] MEDS ORDERED: amLODIPine BESYLATE 5 MG TABLET (FP) ONE (11:35)
[2020-03-11] MEDS: BUDESONIDE/FORMETEROL FUMARATE 160/4.5 mcg INHALER IH SCH ×2 (11:40→21:03)
[2020-03-11] MEDS: CARVEDILOL 25 MG TABLET (FP) PO SCH ×2 (11:51→21:02)
--- NOTE | 2020-03-11 11:51 | PN ---
Progress Note, Physician Chief Complaint: Shortness of breath Hyponatremia leukocytosis History of Present Illness: NAD Worsening asthma symptoms past 2 days, had been taking oral prednisone, without any relief of symptoms - Current Medication List Current Medications: Active Medications Albuterol Sulfate (Ventolin Hfa Inhaler -) 2 puff IH Q4H PRN PRN Reason: SHORT OF BREATH/WHEEZING Amlodipine Besylate (Norvasc -) 10 mg PO DAILY [facility] Budesonide/Formoterol Fumarate (Symbicort 160/4.5mcg -) 2 puff IH BID [facility] Carvedilol (Coreg -) 25 mg PO BID [facility] Last Admin: 03/10/20 23:43 Dose: 25 mg Documented by: Digoxin (Lanoxin -) 0.125 mg PO DAILY [facility] Last Admin: 03/11/20 10:50 Dose: 0.125 mg Documented by: Sodium Chloride (Normal Saline -) 1,000 mls @ 42 mls/hr IV ASDIR [facility] Last Admin: 03/11/20 07:35 Dose: 42 mls/hr Documented by: Lisinopril (Prinivil) 20 mg PO DAILY [facility] Methylprednisolone Sodium Succinate (Solu-Medrol -) 40 mg IVPUSH Q6H-IV [facility] Last Admin: 03/11/20 06:56 Dose: 40 mg Documented by: Rivaroxaban (Xarelto) 20 mg PO DAILY@1800 [facility] Last Admin: 03/10/20 23:43 Dose: 20 mg Documented by: - Objective Vital Signs: Vital Signs Temperature 98.3 F 03/11/20 09:00 Pulse Rate 60 03/11/20 09:00 Respiratory Rate 18 03/11/20 09:00 Blood Pressure 114/64 03/11/20 09:00 O2 Sat by Pulse Oximetry (%) 93 L 03/11/20 09:00 Constitutional: Yes: Well Nourished, No Distress, Calm Cardiovascular: Yes: Regular Rate and Rhythm Respiratory: Yes: Regular, Wheezes (diffuse) Gastrointestinal: Yes: Normal Bowel Sounds, Soft Genitourinary: Yes: WNL Musculoskeletal: Yes: WNL Extremities: Yes: WNL Edema: No Peripheral Pulses WNL: Yes Neurological: Yes: Alert, Oriented Psychiatric: Yes: Alert, Oriented Labs: CBC, BMP 03/11/20 05:30 03/11/20 06:00 Problem List - Problems (1) A-fib Assessment/Plan: -Chronic, rate controlled -Continue xarelto Problems reviewed: Yes Code(s): I48.91 - UNSPECIFIED ATRIAL FIBRILLATION (2) COPD (chronic obstructive pulmonary disease) Problems reviewed: Yes Code(s): J44.9 - CHRONIC OBSTRUCTIVE PULMONARY DISEASE, UNSPECIFIED (3) Asthma exacerbation Assessment/Plan: -Pulmonary consult -IV medrol -O2 to keep SpO2>90% -Bronchodilators Problems reviewed: Yes Code(s): J45.901 - UNSPECIFIED ASTHMA WITH (ACUTE) EXACERBATION (4) Hyponatremia Assessment/Plan: -Nephrology consult -Acute on chronic -Monitor trend Problems reviewed: Yes Code(s): E87.1 - HYPO-OSMOLALITY AND HYPONATREMIA Assessment/Plan See problem list GI ppx
--- NOTE | 2020-03-11 12:11 | EKG ---
Test Reason : Blood Pressure : / mmHG Vent. Rate : 065 BPM Atrial Rate : 045 BPM P-R Int : 000 ms QRS Dur : 086 ms QT Int : 378 ms P-R-T Axes : 000 015 045 degrees QTc Int : 393 ms POOR DATA QUALITY, INTERPRETATION MAY BE ADVERSELY AFFECTED ATRIAL FIBRILLATION NONSPECIFIC ST AND T WAVE ABNORMALITY ABNORMAL ECG WHEN COMPARED WITH ECG OF 30-SEP-2018 11:31, VENT. RATE HAS DECREASED BY 36 BPM QT HAS SHORTENED Confirmed by TODD CARVALHO MD ([id number]) on 03/11/2020 12:11:40 PM Referred By: Confirmed By:TODD CARVALHO MD
[2020-03-11 12:49] LABS: EPI CELLS 14 /uL (0-25.1); HYALINE CASTS 0 /uL (0-3.1); URINE APPEARANCE CLEAR; URINE BACTERIA 166 /uL (0-1359); URINE BILIRUBIN NEGATIVE (NEGATIVE); URINE COLOR YELLOW; URINE GLUCOSE (UA) NEGATIVE (NEGATIVE); URINE KETONE NEGATIVE (NEGATIVE); URINE LEUK ESTERASE 1+ (NEGATIVE); URINE NITRITE NEGATIVE (NEGATIVE); URINE PROTEIN NEGATIVE (NEGATIVE); URINE RBC 2 /uL (0-23.9); URINE UROBILINOGEN 0.2 mg/dL (0.2-1.0); URINE WBC 10 /uL (0-25.8)
[2020-03-11 13:39] VITALS: BMI 27.1
[2020-03-11] MEDS ORDERED: LISINOPRIL 10 MG TABLET (FP) PO SCH (15:33)
--- NOTE | 2020-03-11 15:35 | CON.PULM ---
Consult Consult Specialty:: PULM/CCM Referred by:: KAREY Reason for Consultation:: SOB - History of Present Illness Chief Complaint: SOB History of Present Illness: 64 F, RUL resection 08/2105: Adenocarcinoma (well to moderately differentiated: did not require adjuvant therapy), Asthma, COPD, Afib on Xarelto, and Cervical CA s/p hysterectomy. Admitted via the ER due to progressive SOB and wheezing for the past 2 days. Reports that she is on her second course of Prednisone (most recent dose 30mg). She denies fever, chills, hemoptysis, CP, etc. No travel history or sick contacts. CTA: No PE / elevated Left hemidiaphragm with associated basilar atelectasis - History Source History Provided By: Patient Limitations to Obtaining History: No Limitations - Past Medical History Cardio/Vascular: Yes: AFIB, HTN Pulmonary: Yes: Asthma, Bronchitis, Cancer, COPD, Other (Pulmonary Nodule). No: O2 Dependent, Previously Intubated, Pulmonary Embolus, Pulmonary Fibrosis, Sleep Apnea Hepatobiliary: Yes: Cirrhosis (secondary Hep C) ...: No Dermatology: Yes: Psoriasis - Past Surgical History Past Surgical History: Yes: Hysterectomy - Alcohol/Substance Use Hx Alcohol Use: No History of Substance Use: reports: None - Smoking History Smoking history: Former smoker Have you smoked in the past 12 months: No Aproximately how many cigarettes per day: 10 (30 pack year hx) If you are a former smoker, when did you quit?: 3 years ago - Social History ADL: Independent Occupation: Police Patrol Lieutenant History of Recent Travel: No Home Medications - Allergies Allergies/Adverse Reactions: Allergies Allergy/AdvReac Type Severity Reaction Status Date / Time No Known Drug Allergies Allergy Verified 03/10/20 13:55 - Home Medications Home Medications: Ambulatory Orders Amlodipine Besylate [Norvasc -] 10 mg PO DAILY 01/30/15 Carvedilol 25 mg PO BID 01/30/15 Cetirizine HCl [Zyrtec -] 10 mg PO DAILY PRN 01/30/15 Digoxin [Lanoxin -] 0.125 mg PO DAILY 01/30/15 Budesonide [Pulmicort Flexhaler] 90 mcg IH BID PRN 01/31/15 Lisinopril/Hydrochlorothiazide [Lisinopril-Hctz 20-25 mg Tab] 1 each PO DAILY 01/31/15 Albuterol 0.083% Nebulizer Eulalia [Ventolin 0.083% Nebulizer Soln -] 1 neb NEB Q6H PRN 08/09/15 Albuterol Sulfate [Proair Hfa] 8.5 gm IH DAILY PRN 09/30/18 Rivaroxaban [Xarelto -] 20 mg PO DAILY 09/30/18 Review of Systems - Review of Systems Constitutional: reports: Malaise. denies: Chills, Fever, Night Sweats, Unintentional Wgt. Loss, Weakness Eyes: reports: No Symptoms HENT: reports: No Symptoms Neck: reports: No Symptoms Cardiovascular: reports: Shortness of Breath. denies: Chest Pain, Edema, Palpitations Respiratory: reports: Cough, SOB, SOB on Exertion, Wheezing. denies: Hemoptysis, Orthopnea, PND, Snoring Gastrointestinal: reports: No Symptoms Genitourinary: reports: No Symptoms Breasts: reports: No Symptoms Reported Musculoskeletal: reports: No Symptoms Integumentary: reports: No Symptoms Neurological: reports: No Symptoms Endocrine: reports: No Symptoms Hematology/Lymphatic: reports: No Symptoms Psychiatric: reports: No Symptoms Physical Exam Vital Sings: Vital Signs Temperature 98.3 F 03/11/20 09:00 Pulse Rate 66 03/11/20 11:52 Respiratory Rate 03/11/20 11:52 Blood Pressure 120/78 03/11/20 11:52 O2 Sat by Pulse Oximetry (%) 98 03/11/20 11:52 Constitutional: Yes: No Distress, Calm Eyes: Yes: Conjunctiva Clear, EOM Intact HENT: Yes: Atraumatic, Normocephalic Neck: Yes: Supple, Trachea Midline Cardiovascular: Yes: Pulse Irregular Respiratory: Yes: Cough, Diminished, On Nasal O2, Rhonchi, SOB, SOB on Exertion, Tachypnea, Wheezes. No: Accessory Muscle Use, Rales, Stridor ...Inspection: Yes: WNL ...Clubbing: No Gastrointestinal: Yes: Normal Bowel Sounds, Soft Renal/: Yes: WNL Musculoskeletal: Yes: WNL Extremities: Yes: WNL Edema: No Peripheral Pulses WNL: Yes Integumentary: Yes: WNL Neurological: Yes: WNL, Alert, Oriented ...Motor Strength: WNL Psychiatric: Yes: WNL, Alert, Oriented Labs: CBC, BMP 03/11/20 05:30 03/11/20 06:00 Imaging - Results Cat Scan: Report Reviewed, Image Reviewed Problem List - Problems (1) Lung cancer Code(s): C34.90 - MALIGNANT NEOPLASM OF UNSP PART OF UNSP BRONCHUS OR LUNG (2) Acute bronchitis Code(s): J20.9 - ACUTE BRONCHITIS, UNSPECIFIED (3) Adenocarcinoma of left lung Code(s): C34.92 - MALIGNANT NEOPLASM OF UNSP PART OF LEFT BRONCHUS OR LUNG (4) A-fib Code(s): I48.91 - UNSPECIFIED ATRIAL FIBRILLATION (5) COPD (chronic obstructive pulmonary disease) Code(s): J44.9 - CHRONIC OBSTRUCTIVE PULMONARY DISEASE, UNSPECIFIED (6) HTN (hypertension) Code(s): I10 - ESSENTIAL (PRIMARY) HYPERTENSION (7) SOB (shortness of breath) Code(s): R06.02 - SHORTNESS OF BREATH (8) Asthma Code(s): J45.909 - UNSPECIFIED ASTHMA, UNCOMPLICATED (9) Cirrhosis Code(s): K74.60 - UNSPECIFIED CIRRHOSIS OF LIVER (10) Lung nodule Code(s): R91.1 - SOLITARY PULMONARY NODULE Assessment/Plan IV Medrol Supplemental O2 as needed BD TX standing and PRN Monitor off ABX Incentive Spirometry Continue AC No smoking Will follow Dr Hidalgo
[2020-03-11] MEDS ORDERED: PANTOPRAZOLE SODIUM 40 MG in SODIUM CHLORIDE 100 ML IVPB SCH (16:30)
[2020-03-11] MEDS: ALBUTEROL SO4 2.5/IPRATROPIUM 0.5 INH SOL 3 ML VIAL.NEB. NEB SCH ×2 (16:45→20:08)
[2020-03-11] MEDS: SODIUM CHLORIDE 1,000 ML IV SCH (16:56)
[2020-03-11] MEDS: PANTOPRAZOLE SODIUM 40 MG VIAL IVPUSH SCH (17:17)
[2020-03-11] MEDS: RIVAROXABAN 20 MG TABLET PO SCH (17:17)
[2020-03-11] MEDS ORDERED: RIVAROXABAN 20 MG TABLET PO SCH (18:00)
[2020-03-12] MEDS: methylPREDNISolone NA SUCC 40 MG/1 ML VIAL IVPUSH SCH ×3 (01:59→14:57)
[2020-03-12] MEDS: SODIUM CHLORIDE 1,000 ML IV SCH (06:18)
[2020-03-12 07:05] LABS: BASO % 0.2 % (0-2.0); HEMATOCRIT 32.2 % (32.4-45.2); HEMOGLOBIN 9.8 GM/dL (10.7-15.3); LYMPH % 4.1 % (8-40); MCH 20.9 pg (25.7-33.7); MCHC 30.6 g/dl (32.0-36.0); MEAN CELL VOLUME 68.2 fl (80-96); MEAN PLT VOLUME 8.2 fl (7.5-11.1); MONO % 3.1 % (3.8-10.2); NEUT % 92.6 % (42.8-82.8); PLATELET COUNT 193 K/MM3 (134-434); RBC 4.72 M/mm3 (3.60-5.2); RDW 16.3 % (11.6-15.6); WHITE BLOOD COUNT 8.2 K/mm3 (4.0-10.0)
[2020-03-12 07:28] LABS: ALBUMIN 3.3 g/dl (3.4-5.0); BILIRUBIN,TOTAL 0.7 mg/dL (0.2-1); CALCIUM 9.1 mg/dL (8.5-10.1); CREATININE 0.6 mg/dL (0.55-1.3); POTASSIUM 4.1 mmol/L (3.5-5.1); TOT PROT 6.6 g/dl (6.4-8.2)
[2020-03-12] MEDS: ALBUTEROL SO4 2.5/IPRATROPIUM 0.5 INH SOL 3 ML VIAL.NEB. NEB SCH ×2 (08:04→14:57)
[2020-03-12] MEDS: CARVEDILOL 25 MG TABLET (FP) PO SCH (09:20)
[2020-03-12] MEDS: BUDESONIDE/FORMETEROL FUMARATE 160/4.5 mcg INHALER IH SCH (09:21)
[2020-03-12] MEDS: PANTOPRAZOLE SODIUM 40 MG VIAL IVPUSH SCH (09:21)
--- NOTE | 2020-03-12 09:50 | PN ---
Progress Note (short form) - Note Progress Note: PULMONARY VSS/AFEBRILE WANTS TO GO HOME FEELS MUCH IMPROVED Constitutional: Yes: No Distress, Calm Eyes: Yes: Conjunctiva Clear, EOM Intact HENT: Yes: Atraumatic, Normocephalic Neck: Yes: Supple, Trachea Midline Cardiovascular: Yes: Pulse Irregular Respiratory: Yes: Cough, Diminished, On Nasal O2, Rhonchi, SOB, SOB on Exertion, Tachypnea, Wheezes. No: Accessory Muscle Use, Rales, Stridor ...Inspection: Yes: WNL ...Clubbing: No Gastrointestinal: Yes: Normal Bowel Sounds, Soft Renal/: Yes: WNL Musculoskeletal: Yes: WNL Extremities: Yes: WNL Edema: No Peripheral Pulses WNL: Yes Integumentary: Yes: WNL Neurological: Yes: WNL, Alert, Oriented ...Motor Strength: WNL Psychiatric: Yes: WNL, Alert, Oriented Labs: REVIEWED IMAGES NOTED Problem List - Problems (1) Lung cancer Code(s): C34.90 - MALIGNANT NEOPLASM OF UNSP PART OF UNSP BRONCHUS OR LUNG (2) Acute bronchitis Code(s): J20.9 - ACUTE BRONCHITIS, UNSPECIFIED (3) Adenocarcinoma of left lung Code(s): C34.92 - MALIGNANT NEOPLASM OF UNSP PART OF LEFT BRONCHUS OR LUNG (4) A-fib Code(s): I48.91 - UNSPECIFIED ATRIAL FIBRILLATION (5) COPD (chronic obstructive pulmonary disease) Code(s): J44.9 - CHRONIC OBSTRUCTIVE PULMONARY DISEASE, UNSPECIFIED (6) HTN (hypertension) Code(s): I10 - ESSENTIAL (PRIMARY) HYPERTENSION (7) SOB (shortness of breath) Code(s): R06.02 - SHORTNESS OF BREATH (8) Asthma Code(s): J45.909 - UNSPECIFIED ASTHMA, UNCOMPLICATED (9) Cirrhosis Code(s): K74.60 - UNSPECIFIED CIRRHOSIS OF LIVER (10) Lung nodule Code(s): R91.1 - SOLITARY PULMONARY NODULE IV Medrol can change to prednisone and taper as an outpatient Supplemental O2 as needed BD TX standing and PRN Monitor off ABX Incentive Spirometry Continue AC No smoking Will follow in an outpatient setting Prabhu ADAMES MD
[2020-03-12 09:55] LABS: ANISOCYTOSIS 3+; MACROCYTOSIS 0; PLATELET ESTIMATE NORMAL
[2020-03-12] MEDS: DIGOXIN 0.125 MG TABLET (FP) PO SCH (10:51)
--- NOTE | 2020-03-12 11:59 | PN ---
Progress Note, Physician Chief Complaint: Shortness of breath Hyponatremia leukocytosis History of Present Illness: NAD Feels much better, walking in the hallway wants to go home - Current Medication List Current Medications: Active Medications Albuterol Sulfate (Ventolin Hfa Inhaler -) 2 puff IH Q4H PRN PRN Reason: SHORT OF BREATH/WHEEZING Albuterol/Ipratropium (Duoneb -) 1 amp NEB RQID [facility] Last Admin: 03/12/20 08:04 Dose: 1 amp Documented by: Budesonide/Formoterol Fumarate (Symbicort 160/4.5mcg -) 2 puff IH BID [facility] Last Admin: 03/12/20 09:21 Dose: 2 puff Documented by: Carvedilol (Coreg -) 25 mg PO BID [facility] Last Admin: 03/12/20 09:20 Dose: 25 mg Documented by: Digoxin (Lanoxin -) 0.125 mg PO DAILY [facility] Last Admin: 03/12/20 10:51 Dose: 0.125 mg Documented by: Sodium Chloride (Normal Saline -) 1,000 mls @ 40 mls/hr IV ASDIR [facility] Last Admin: 03/12/20 06:18 Dose: 40 mls/hr Documented by: Lisinopril (Prinivil) 10 mg PO DAILY [facility] Last Admin: 03/12/20 09:20 Dose: 10 mg Documented by: Methylprednisolone Sodium Succinate (Solu-Medrol -) 40 mg IVPUSH Q6H-IV [facility] Last Admin: 03/12/20 09:18 Dose: 40 mg Documented by: Pantoprazole Sodium (Protonix Iv) 40 mg IVPUSH DAILY [facility] Last Admin: 03/12/20 09:21 Dose: 40 mg Documented by: Rivaroxaban (Xarelto) 20 mg PO DAILY@1800 [facility] Last Admin: 03/11/20 17:17 Dose: 20 mg Documented by: - Objective Vital Signs: Vital Signs Temperature 98.1 F 03/12/20 08:14 Pulse Rate 69 03/12/20 10:51 Respiratory Rate 20 03/12/20 09:00 Blood Pressure 116/67 03/12/20 08:14 O2 Sat by Pulse Oximetry (%) 97 03/12/20 09:00 Constitutional: Yes: Well Nourished, No Distress, Calm Cardiovascular: Yes: Regular Rate and Rhythm Respiratory: Yes: Regular, Wheezes (mild Right lung diffuse) Gastrointestinal: Yes: Normal Bowel Sounds, Soft Genitourinary: Yes: WNL Musculoskeletal: Yes: WNL Extremities: Yes: WNL Edema: No Peripheral Pulses WNL: Yes Neurological: Yes: Alert, Oriented Psychiatric: Yes: Alert, Oriented Labs: CBC, BMP 03/12/20 06:25 03/12/20 06:25 Problem List - Problems (1) A-fib Assessment/Plan: -Chronic, rate controlled -Continue xarelto Problems reviewed: Yes Code(s): I48.91 - UNSPECIFIED ATRIAL FIBRILLATION (2) COPD (chronic obstructive pulmonary disease) Problems reviewed: Yes Code(s): J44.9 - CHRONIC OBSTRUCTIVE PULMONARY DISEASE, UNSPECIFIED (3) Asthma exacerbation Assessment/Plan: -Pulmonary consult -Prednisone tapering dose at home -PPI for GI PPX -O2 to keep SpO2>90% -Bronchodilators Code(s): J45.901 - UNSPECIFIED ASTHMA WITH (ACUTE) EXACERBATION (4) Hyponatremia Assessment/Plan: -Nephrology consult -Acute on chronic -Monitor trend -D/C amlodipine and hctz Problems reviewed: Yes Code(s): E87.1 - HYPO-OSMOLALITY AND HYPONATREMIA Assessment/Plan See problem list d/c home
[2020-03-12 13:31] VITALS: BP 98/60; PULSE 71; TEMP 98
--- NOTE | 2020-03-12 16:02 | PN ---
Progress Note, Physician History of Present Illness: Pt seen and examined at bedside. She is awake and alert. She denies shortness of breath. - Objective Vital Signs: Vital Signs Temperature 98 F 03/12/20 13:30 Pulse Rate 71 03/12/20 13:30 Respiratory Rate 20 03/12/20 13:30 Blood Pressure 98/60 03/12/20 13:30 O2 Sat by Pulse Oximetry (%) 97 03/12/20 13:30 Constitutional: Yes: Calm Eyes: Yes: Conjunctiva Clear HENT: Yes: Atraumatic Neck: Yes: Supple Cardiovascular: Yes: S1, S2 Respiratory: Yes: CTA Bilaterally Gastrointestinal: Yes: Normal Bowel Sounds, Soft Genitourinary: Yes: WNL Musculoskeletal: Yes: WNL Edema: No Neurological: Yes: Oriented Psychiatric: Yes: Oriented Labs: CBC, BMP 03/12/20 06:25 03/12/20 06:25 Problem List - Problems (1) A-fib Code(s): I48.91 - UNSPECIFIED ATRIAL FIBRILLATION (2) COPD (chronic obstructive pulmonary disease) Code(s): J44.9 - CHRONIC OBSTRUCTIVE PULMONARY DISEASE, UNSPECIFIED (3) HTN (hypertension) Code(s): I10 - ESSENTIAL (PRIMARY) HYPERTENSION (4) Hyponatremia Code(s): E87.1 - HYPO-OSMOLALITY AND HYPONATREMIA Assessment/Plan Current Medications Generic Name Dose Route Start Last Admin Trade Name Freq PRN Reason Stop Dose Admin Albuterol Sulfate 2 puff 03/10/20 21:32 Ventolin Hfa Inhaler - IH Q4H PRN SHORT OF BREATH/WHEEZING Amlodipine Besylate 10 mg 03/11/20 10:00 Norvasc - PO DAILY DAVID Budesonide/Formoterol Fumarate 2 puff 03/11/20 10:00 Symbicort 160/4.5mcg - IH BID [facility]ID Carvedilol 25 mg 03/10/20 22:00 03/10/20 23:43 Coreg - PO 25 mg BID [facility] Administration Digoxin 0.125 mg 03/11/20 10:00 Lanoxin - PO DAILY [facility]ID Sodium Chloride 1,000 mls @ 42 mls/hr 03/11/20 06:45 Normal Saline - IV ASDIR [facility]ID Lisinopril 20 mg 03/11/20 10:00 Prinivil PO DAILY DAVID Methylprednisolone Sodium Succinate 40 mg 03/11/20 06:45 07/23/20 06:56 Solu-Medrol - IVPUSH 40 mg Q6H-IV [facility]ID Administration Rivaroxaban 20 mg 03/10/20 22:45 03/10/20 23:43 Xarelto PO 20 mg DAILY@1800 [facility]ID Administration Laboratory Tests 03/12/20 06:25 Sodium 135 L Selected Entries 03/12/20 08:14 Blood Pressure 116/67 Impression 1. hyponatremia 2. a-fib 3. htn 4. copd 5. cervical cancer 6. lung nodule Plan - sodium improved - d/c hctz - d/c amlodipine - can cont coreg and lisinopril - pt will get a bp machine and create a bp log at home - will need outpt follow up
== END 2020-03-12 15:24 | disposition home or self-care (01) | DRG 202 ==
LOC: JER 13:45 → JERBED 19:53 → J7W 03-11 12:14
PROVIDERS: ADMIT Internal Medicine; ATTEND Family Medicine
DX: J45.901 Unspecified asthma with (acute) exacerbation (principal); J98.11 Atelectasis; E87.1 Hypo-osmolality and hyponatremia; I10 Essential (primary) hypertension; I48.91 Unspecified atrial fibrillation; D72.829 Elevated white blood cell count, unspecified
CPT/HCPCS: 36415; 71046-TC-FY; 71275-TC; 80053; 80162; 81003; 82436; 82550; 83036; 83735; 83880; 83930; 83935; 84133; 84300; 84484; 85025; 87040; 87086; 93005; 93010; 94640; 99285-25; Q9967; U0003

== ENCOUNTER 2022-02-04 09:23 | Emergency (ER) | payer OTHER, MEDICARE ==
[2022-02-04 09:38] VITALS: BP 145/88; PULSE 73; TEMP 98.3; BMI 24.5
[2022-02-04 10:52] LABS: BASO % 0.7 % (0-2.0); EOS % 5.1 % (0-4.5); HEMATOCRIT 45.5 % (32.4-45.2); HEMOGLOBIN 14.9 GM/dL (10.7-15.3); MCH 27.7 pg (25.7-33.7); MCHC 32.7 g/dl (32.0-36.0); MEAN CELL VOLUME 84.5 fl (80-96); MEAN PLT VOLUME 7.8 fl (7.5-11.1); MONO % 8.9 % (3.8-10.2); NEUT % 75.3 % (42.8-82.8); PLATELET COUNT 178 10^3/uL (134-434); RBC 5.38 M/mm3 (3.60-5.2); RDW 13.6 % (11.6-15.6); WHITE BLOOD COUNT 7.6 K/mm3 (4.0-10.0)
[2022-02-04 11:02] LABS: ACTIVATED PTT 37.8 SECONDS (25.2-36.5); INR 1.51 (0.83-1.09); PROTHROMBIN TIME (PATIENT) 17.4 SEC (9.7-13.0)
[2022-02-04 11:14] LABS: ALBUMIN 3.6 g/dl (3.4-5.0); BLOOD UREA NITROGEN 6.7 mg/dL (7-18); CALCIUM 9.7 mg/dL (8.5-10.1)
[2022-02-04 11:17] LABS: CREATININE 0.6 mg/dL (0.55-1.3)
[2022-02-04 11:19] LABS: BILIRUBIN,TOTAL 0.8 mg/dL (0.2-1); TOT PROT 7.1 g/dl (6.4-8.2)
== END 2022-02-04 14:45 | disposition home or self-care (01) ==
LOC: JERFT 09:23
DX: N89.8 Other specified noninflammatory disorders of vagina (principal)
CPT/HCPCS: 36415; 74177-TC; 80053; 85025; 85610; 85730; 86850; 86900; 86901; 99285-25; Q9967

== ENCOUNTER 2022-08-08 10:56 | Inpatient (IN) | payer OTHER, MEDICARE ==
[2022-08-08] MEDS ORDERED: ALBUTEROL SO4 2.5/IPRATROPIUM 0.5 INH SOL 3 ML VIAL.NEB. NEB ONE (12:25)
[2022-08-08 13:14] LABS: HEMATOCRIT 37.5 % (32.4-45.2); MCH 27.3 pg (25.7-33.7); MCHC 32.1 g/dl (32.0-36.0); MEAN CELL VOLUME 85.1 fl (80-96); MEAN PLT VOLUME 7.8 fl (7.5-11.1); PLATELET COUNT 170 10^3/uL (134-434); RBC 4.41 M/mm3 (3.60-5.2); RDW 17.3 % (11.6-15.6); WHITE BLOOD COUNT 8.4 K/mm3 (4.0-10.0)
[2022-08-08 13:20] LABS: INR 1.29 (0.83-1.09); PROTHROMBIN TIME (PATIENT) 14.9 SEC (9.7-13.0)
[2022-08-08 13:39] LABS: ALBUMIN 3.4 g/dl (3.4-5.0); BLOOD UREA NITROGEN 11.5 mg/dL (7-18); CALCIUM 9.1 mg/dL (8.5-10.1)
[2022-08-08 13:40] LABS: MAGNESIUM 1.8 mg/dL (1.8-2.4)
[2022-08-08 13:42] LABS: CREATININE 0.5 mg/dL (0.55-1.3)
[2022-08-08 13:44] LABS: BILIRUBIN,TOTAL 0.9 mg/dL (0.2-1); TOT PROT 6.9 g/dl (6.4-8.2)
[2022-08-08 14:01] LABS: ANISOCYTOSIS 0; HELMET CELLS 0; HOWELL-JOLLY BODIES 0; MACROCYTOSIS 0; OVALOCYTE 0; ROULEAU 0; SICKELED CELLS 0; TARGET CELLS 0; TEAR DROP CELLS 0; TOXIC GRANULATION 0
[2022-08-08] MEDS ORDERED: HEPARIN NA (PORCINE) 5,000 UNITS/ML 1ML VIAL IVPUSH PRN ×2 (16:54)
[2022-08-08] MEDS ORDERED: HEPARIN NA (PORCINE) 5,000 UNITS/ML 1ML VIAL ONE (17:24)
[2022-08-08] MEDS ORDERED: HEPARIN INFUSION - 25,000 UNITS/500 ML INFUS.BAG IVPB ONE (17:24)
[2022-08-08] MEDS: HEPARIN INFUSION - 25,000 UNITS/500 ML INFUS.BAG IVPB SCH (17:57)
[2022-08-08 21:38] VITALS: BMI 24.3
[2022-08-08] MEDS ORDERED: ALBUTEROL SO4 2.5/IPRATROPIUM 0.5 INH SOL 3 ML VIAL.NEB. NEB PRN ×2 (21:40→21:51)
[2022-08-08] MEDS ORDERED: ALBUTEROL SO4 HFA INHALER IH PRN (22:02)
[2022-08-08] MEDS: CARVEDILOL 25 MG TABLET (FP) PO SCH (22:21)
[2022-08-08] MEDS: BUDESONIDE/FORMETEROL FUMARATE 160/4.5 mcg INHALER IH SCH (22:22)
[2022-08-08] MEDS: MELATONIN 5 MG TABLETS PO SCH (22:54)
[2022-08-09 08:56] LABS: BASO % 0.2 % (0-2.0); EOS % 1.1 % (0-4.5); HEMATOCRIT 31.2 % (32.4-45.2); LYMPH % 5.4 % (8-40); MCH 27.3 pg (25.7-33.7); MEAN CELL VOLUME 85.2 fl (80-96); MEAN PLT VOLUME 7.7 fl (7.5-11.1); NEUT % 85.3 % (42.8-82.8); PLATELET COUNT 118 10^3/uL (134-434); RBC 3.66 M/mm3 (3.60-5.2); RDW 17.9 % (11.6-15.6); WHITE BLOOD COUNT 5.2 K/mm3 (4.0-10.0)
[2022-08-09] MEDS: CARVEDILOL 25 MG TABLET (FP) PO SCH ×2 (09:16→21:43)
[2022-08-09] MEDS: BUDESONIDE/FORMETEROL FUMARATE 160/4.5 mcg INHALER IH SCH ×2 (09:27→21:43)
[2022-08-09] MEDS: PANTOPRAZOLE 40 MG TABLET PO SCH (09:28)
[2022-08-09] MEDS ORDERED: DIGOXIN 0.125 MG TABLET PO SCH (10:00)
[2022-08-09] MEDS: LORATADINE 10 MG TABLET PO SCH (10:31)
[2022-08-09 10:43] LABS: ALBUMIN 2.8 g/dl (3.4-5.0); BILIRUBIN,TOTAL 0.8 mg/dL (0.2-1); BLOOD UREA NITROGEN 9.7 mg/dL (7-18); CALCIUM 8.7 mg/dL (8.5-10.1); CREATININE 0.6 mg/dL (0.55-1.3); MAGNESIUM 1.7 mg/dL (1.8-2.4); PHOSPHOROUS 4.3 mg/dL (2.5-4.9); TOT PROT 5.7 g/dl (6.4-8.2)
[2022-08-09] MEDS ORDERED: REMDESIVIR 200 MG in SODIUM CHLORIDE 250 ML IVPB ONE (14:30)
[2022-08-09] MEDS: HEPARIN INFUSION - 25,000 UNITS/500 ML INFUS.BAG IVPB SCH (17:49)
[2022-08-09] MEDS: MAGNESIUM OXIDE 400 MG TABLET (FP) PO SCH (21:43)
[2022-08-09] MEDS: MELATONIN 5 MG TABLETS PO SCH (21:43)
[2022-08-10 08:40] LABS: BASO % 0.3 % (0-2.0); EOS % 1.1 % (0-4.5); HEMATOCRIT 33.5 % (32.4-45.2); HEMOGLOBIN 10.7 GM/dL (10.7-15.3); LYMPH % 3.4 % (8-40); MCH 27.4 pg (25.7-33.7); MCHC 31.9 g/dl (32.0-36.0); MEAN CELL VOLUME 85.9 fl (80-96); MEAN PLT VOLUME 7.9 fl (7.5-11.1); MONO % 7.4 % (3.8-10.2); NEUT % 87.8 % (42.8-82.8); PLATELET COUNT 134 10^3/uL (134-434); RBC 3.89 M/mm3 (3.60-5.2); RDW 17.7 % (11.6-15.6); WHITE BLOOD COUNT 8.4 K/mm3 (4.0-10.0)
[2022-08-10 09:08] LABS: ALBUMIN 2.8 g/dl (3.4-5.0); BLOOD UREA NITROGEN 7.6 mg/dL (7-18); CALCIUM 8.7 mg/dL (8.5-10.1); MAGNESIUM 1.9 mg/dL (1.8-2.4)
[2022-08-10 09:11] LABS: CREATININE 0.5 mg/dL (0.55-1.3)
[2022-08-10 09:13] LABS: BILIRUBIN,TOTAL 0.8 mg/dL (0.2-1); TOT PROT 5.9 g/dl (6.4-8.2)
[2022-08-10] MEDS: PANTOPRAZOLE 40 MG TABLET PO SCH (09:21)
[2022-08-10] MEDS: CARVEDILOL 25 MG TABLET (FP) PO SCH ×2 (09:21→21:35)
[2022-08-10] MEDS: LORATADINE 10 MG TABLET PO SCH (09:21)
[2022-08-10] MEDS: MAGNESIUM OXIDE 400 MG TABLET (FP) PO SCH ×2 (09:21→21:35)
[2022-08-10] MEDS: BUDESONIDE/FORMETEROL FUMARATE 160/4.5 mcg INHALER IH SCH ×2 (09:21→21:35)
[2022-08-10] MEDS: DEXAMETHASONE SOD PHOSPHATE 4 MG/1 ML VIAL IVPUSH SCH (12:39)
[2022-08-10] MEDS: REMDESIVIR 100 MG in SODIUM CHLORIDE 250 ML IVPB SCH (12:51)
[2022-08-10] MEDS: MELATONIN 5 MG TABLETS PO SCH (21:35)
[2022-08-11 07:39] LABS: BASO % 0.1 % (0-2.0); HEMATOCRIT 29.9 % (32.4-45.2); HEMOGLOBIN 9.4 GM/dL (10.7-15.3); LYMPH % 3.6 % (8-40); MCH 26.7 pg (25.7-33.7); MCHC 31.2 g/dl (32.0-36.0); MEAN CELL VOLUME 85.4 fl (80-96); MEAN PLT VOLUME 7.9 fl (7.5-11.1); MONO % 6.6 % (3.8-10.2); NEUT % 89.7 % (42.8-82.8); PLATELET COUNT 94 10^3/uL (134-434); RBC 3.51 M/mm3 (3.60-5.2); RDW 17.6 % (11.6-15.6); WHITE BLOOD COUNT 4.3 K/mm3 (4.0-10.0)
[2022-08-11 08:03] LABS: ALBUMIN 2.6 g/dl (3.4-5.0); BLOOD UREA NITROGEN 9.1 mg/dL (7-18); MAGNESIUM 2.3 mg/dL (1.8-2.4)
[2022-08-11 08:06] LABS: CREATININE 0.4 mg/dL (0.55-1.3)
[2022-08-11 08:07] LABS: BILIRUBIN,TOTAL 0.6 mg/dL (0.2-1)
[2022-08-11 08:08] LABS: TOT PROT 5.6 g/dl (6.4-8.2)
[2022-08-11] MEDS: LORATADINE 10 MG TABLET PO SCH (09:19)
[2022-08-11] MEDS: DEXAMETHASONE SOD PHOSPHATE 4 MG/1 ML VIAL IVPUSH SCH (09:20)
[2022-08-11] MEDS: PANTOPRAZOLE 40 MG TABLET PO SCH (09:21)
[2022-08-11] MEDS: MAGNESIUM OXIDE 400 MG TABLET (FP) PO SCH ×2 (09:21→21:21)
[2022-08-11] MEDS: BUDESONIDE/FORMETEROL FUMARATE 160/4.5 mcg INHALER IH SCH ×2 (09:22→21:22)
[2022-08-11] MEDS: REMDESIVIR 100 MG in SODIUM CHLORIDE 250 ML IVPB SCH (09:24)
[2022-08-11] MEDS: CARVEDILOL 25 MG TABLET (FP) PO SCH ×2 (09:40→21:21)
[2022-08-11] MEDS: HEPARIN INFUSION - 25,000 UNITS/500 ML INFUS.BAG IVPB SCH (14:46)
[2022-08-11] MEDS: ENOXAPARIN NA (PORCINE) 80 MG/0.8 ML DISP.SYRIN SQ SCH (14:49)
[2022-08-11] MEDS: MELATONIN 5 MG TABLETS PO SCH (21:21)
[2022-08-12] MEDS: ENOXAPARIN NA (PORCINE) 80 MG/0.8 ML DISP.SYRIN SQ SCH ×2 (02:20→14:54)
[2022-08-12 07:42] LABS: BASO % 0.1 % (0-2.0); EOS % 0.1 % (0-4.5); HEMATOCRIT 35.1 % (32.4-45.2); HEMOGLOBIN 11.1 GM/dL (10.7-15.3); LYMPH % 2.9 % (8-40); MCH 27.1 pg (25.7-33.7); MCHC 31.5 g/dl (32.0-36.0); MEAN CELL VOLUME 86.1 fl (80-96); MEAN PLT VOLUME 7.9 fl (7.5-11.1); MONO % 6.9 % (3.8-10.2); PLATELET COUNT 106 10^3/uL (134-434); RBC 4.08 M/mm3 (3.60-5.2); RDW 17.4 % (11.6-15.6); WHITE BLOOD COUNT 10.9 K/mm3 (4.0-10.0)
[2022-08-12 07:47] LABS: CALCIUM 9.3 mg/dL (8.5-10.1)
[2022-08-12 07:50] LABS: CREATININE 0.4 mg/dL (0.55-1.3)
[2022-08-12 07:52] LABS: BILIRUBIN,TOTAL 0.6 mg/dL (0.2-1); TOT PROT 6.4 g/dl (6.4-8.2)
[2022-08-12] MEDS: DEXAMETHASONE SOD PHOSPHATE 4 MG/1 ML VIAL IVPUSH SCH (09:15)
[2022-08-12] MEDS: CARVEDILOL 25 MG TABLET (FP) PO SCH ×2 (09:15→21:21)
[2022-08-12] MEDS: LORATADINE 10 MG TABLET PO SCH (09:15)
[2022-08-12] MEDS: PANTOPRAZOLE 40 MG TABLET PO SCH (09:16)
[2022-08-12] MEDS: MAGNESIUM OXIDE 400 MG TABLET (FP) PO SCH ×2 (09:16→21:21)
[2022-08-12] MEDS: BUDESONIDE/FORMETEROL FUMARATE 160/4.5 mcg INHALER IH SCH ×2 (11:19→21:21)
[2022-08-12] MEDS: REMDESIVIR 100 MG in SODIUM CHLORIDE 250 ML IVPB SCH (11:19)
[2022-08-12] MEDS: MELATONIN 5 MG TABLETS PO SCH (21:21)
[2022-08-13] MEDS: ENOXAPARIN NA (PORCINE) 80 MG/0.8 ML DISP.SYRIN SQ SCH (03:11)
[2022-08-13 07:26] LABS: BASO % 0.1 % (0-2.0); EOS % 0.1 % (0-4.5); HEMATOCRIT 31.4 % (32.4-45.2); HEMOGLOBIN 10.1 GM/dL (10.7-15.3); LYMPH % 4.4 % (8-40); MCH 27.7 pg (25.7-33.7); MCHC 32.3 g/dl (32.0-36.0); MEAN CELL VOLUME 85.8 fl (80-96); MEAN PLT VOLUME 8.6 fl (7.5-11.1); MONO % 12.1 % (3.8-10.2); NEUT % 83.3 % (42.8-82.8); PLATELET COUNT 103 10^3/uL (134-434); RBC 3.66 M/mm3 (3.60-5.2); RDW 17.6 % (11.6-15.6); WHITE BLOOD COUNT 4.7 K/mm3 (4.0-10.0)
[2022-08-13 08:05] LABS: ALBUMIN 2.7 g/dl (3.4-5.0); BILIRUBIN,TOTAL 0.4 mg/dL (0.2-1); BLOOD UREA NITROGEN 11.9 mg/dL (7-18); CALCIUM 8.9 mg/dL (8.5-10.1); CREATININE 0.5 mg/dL (0.55-1.3); MAGNESIUM 1.9 mg/dL (1.8-2.4); TOT PROT 5.8 g/dl (6.4-8.2)
[2022-08-13 08:51] VITALS: TEMP 97.7
[2022-08-13] MEDS: CARVEDILOL 25 MG TABLET (FP) PO SCH (09:09)
[2022-08-13] MEDS: PANTOPRAZOLE 40 MG TABLET PO SCH (09:10)
[2022-08-13] MEDS: MAGNESIUM OXIDE 400 MG TABLET (FP) PO SCH (09:10)
[2022-08-13] MEDS: LORATADINE 10 MG TABLET PO SCH (09:10)
[2022-08-13] MEDS: BUDESONIDE/FORMETEROL FUMARATE 160/4.5 mcg INHALER IH SCH (09:16)
[2022-08-13] MEDS: REMDESIVIR 100 MG in SODIUM CHLORIDE 250 ML IVPB SCH (09:30)
[2022-08-13] MEDS ORDERED: DEXAMETHASONE 4 MG TABLET (FP) PO SCH (10:00)
[2022-08-13 10:39] VITALS: BP 145/98; PULSE 64; RESP 14
== END 2022-08-13 13:20 | disposition home health service (06) | DRG 175 ==
LOC: JER 10:56 → JERBED 15:31 → J2W 20:22
PROVIDERS: ADMIT Internal Medicine; ATTEND Nurse Practitioner Acute Care
PROC: XW033E5 Introduction of Remdesivir Anti-infective into Peripheral Vein, Percutaneous Approach, New Technology Group 5 (ICD-10-PCS; principal; 2022-08-08)
DX: I26.99 Other pulmonary embolism without acute cor pulmonale (principal); U07.1 COVID-19; C34.90 Malignant neoplasm of unspecified part of unspecified bronchus or lung; I48.19 Other persistent atrial fibrillation; D68.59 Other primary thrombophilia; C51.9 Malignant neoplasm of vulva, unspecified; J44.9 Chronic obstructive pulmonary disease, unspecified; C53.9 Malignant neoplasm of cervix uteri, unspecified; I11.9 Hypertensive heart disease without heart failure; B19.20 Unspecified viral hepatitis C without hepatic coma; D64.9 Anemia, unspecified; E78.5 Hyperlipidemia, unspecified; I25.119 Atherosclerotic heart disease of native coronary artery with unspecified angina pectoris
CPT/HCPCS: 0241U-QW; 36415; 71046-TC-FY; 71275-TC; 80053; 83735; 84100; 84484; 85025; 85379; 85610; 85730; 93005; 93010; 93306-TC; 99285-25; C9399; J1644; Q9967

== ENCOUNTER 2022-09-08 09:30 | Emergency (ER) | payer OTHER, MEDICARE ==
[2022-09-08 09:40] VITALS: BP 118/46; PULSE 57; RESP 18; TEMP 99.9; BMI 24.0
[2022-09-08] MEDS ORDERED: ACETAMINOPHEN 1000 MG/100 ML BAG IVPB ONE (10:25)
[2022-09-08] MEDS ORDERED: ACETAMINOPHEN INJECTION 100 ML IVPB ONE (10:56)
[2022-09-08 11:11] LABS: BASO % 0.5 % (0-2.0); EOS % 0.5 % (0-4.5); HEMATOCRIT 35.2 % (32.4-45.2); HEMOGLOBIN 11.1 GM/dL (10.7-15.3); LYMPH % 3.6 % (8-40); MCH 27.6 pg (25.7-33.7); MCHC 31.5 g/dl (32.0-36.0); MEAN CELL VOLUME 87.5 fl (80-96); MEAN PLT VOLUME 7.6 fl (7.5-11.1); MONO % 11.4 % (3.8-10.2); PLATELET COUNT 102 10^3/uL (134-434); RBC 4.02 M/mm3 (3.60-5.2); RDW 15.7 % (11.6-15.6); WHITE BLOOD COUNT 5.9 K/mm3 (4.0-10.0)
[2022-09-08 11:17] LABS: INR 1.27 (0.83-1.09); PROTHROMBIN TIME (PATIENT) 14.6 SEC (9.7-13.0)
[2022-09-08 12:40] LABS: ALBUMIN 3.3 g/dl (3.4-5.0); CALCIUM 9.1 mg/dL (8.5-10.1); CREATININE 0.5 mg/dL (0.55-1.3); TOT PROT 6.4 g/dl (6.4-8.2)
[2022-09-08] MEDS ORDERED: DALBAVANCIN HCL 1,500 MG in DEXTROSE 5%-WATER - 500 ML IVPB ONE (13:21)
[2022-09-08] MEDS ORDERED: DALBAVANCIN HCL 500 MG VIAL (RESTRICTED TO ID ONLY) IVPB ONE (13:43)
== END 2022-09-08 14:30 | disposition home or self-care (01) ==
LOC: JER 09:30
PROC: 3E033GC Introduction of Other Therapeutic Substance into Peripheral Vein, Percutaneous Approach (ICD-10-PCS; principal; 2022-09-08)
DX: L03.115 Cellulitis of right lower limb (principal)
CPT/HCPCS: 0241U-QW; 36415; 73590-TC-RT-FY; 80053; 83605; 85025; 85610; 87040; 93005; 93010; 93971-TC; 99285-25; J0875

== ENCOUNTER 2022-10-21 10:59 | Day surgery (SDC) | payer OTHER, MEDICARE ==
[2022-10-21] MEDS ORDERED: IRON SUCROSE INJECTION 200 MG/100 ML BAG IVPB ONE (11:30)
[2022-10-21] MEDS ORDERED: IRON SUCROSE INJECTION 200 MG in SODIUM CHLORIDE 100 ML IVPB ONE (11:30)
[2022-10-21 12:30] VITALS: BP 125/90; PULSE 57; RESP 18; TEMP 98.5
== END 2022-10-21 13:22 | disposition home or self-care (01) ==
LOC: FINFUSION 10:59 → FM/S 11:00 → FINFUSION 13:22
PROVIDERS: ATTEND Family Medicine
PROC: 3E033GC Introduction of Other Therapeutic Substance into Peripheral Vein, Percutaneous Approach (ICD-10-PCS; principal; 2022-10-21)
DX: D50.9 Iron deficiency anemia, unspecified (principal)
CPT/HCPCS: 96365; J1756

== ENCOUNTER 2023-10-05 12:14 | Inpatient (IN) | payer OTHER, MEDICARE ==
[2023-10-05] MEDS ORDERED: ALBUTEROL SO4 2.5/IPRATROPIUM 0.5 INH SOL 3 ML VIAL.NEB. NEB ONE (13:21)
[2023-10-05] MEDS ORDERED: methylPREDNISolone NA SUCC 125 MG/2 ML VIAL ONE (14:03)
[2023-10-05] MEDS: ALBUTEROL SO4 2.5/IPRATROPIUM 0.5 INH SOL 3 ML VIAL.NEB. NEB ONE (14:03)
[2023-10-05 14:08] LABS: HEMATOCRIT 45.9 % (32.4-45.2); HEMOGLOBIN 15.4 GM/dL (10.7-15.3); MCH 29.2 pg (25.7-33.7); MCHC 33.6 g/dl (32.0-36.0); MEAN CELL VOLUME 87.1 fl (80-96); PLATELET COUNT 120 10^3/uL (134-434); RBC 5.27 M/mm3 (3.60-5.2); RDW 13.9 % (11.6-15.6); WHITE BLOOD COUNT 9.3 K/mm3 (4.0-10.0)
[2023-10-05] MEDS: methylPREDNISolone NA SUCC 125 MG/2 ML VIAL IVPB ONE (14:09)
[2023-10-05 14:34] LABS: ANISOCYTOSIS 0; MACROCYTOSIS 0
[2023-10-05 14:36] LABS: POTASSIUM 4.6 mmol/L (3.5-5.1)
[2023-10-05 14:38] LABS: ALBUMIN 4.6 g/dl (3.4-5.0); BLOOD UREA NITROGEN 19.7 mg/dL (7-18); CALCIUM 10.6 mg/dL (8.5-10.1); MAGNESIUM 1.8 mg/dL (1.8-2.4)
[2023-10-05 14:41] LABS: CREATININE 0.6 mg/dL (0.55-1.3)
[2023-10-05 14:43] LABS: BILIRUBIN,TOTAL 1.2 mg/dL (0.2-1); TOT PROT 9.1 g/dl (6.4-8.2)
[2023-10-05 14:46] LABS: N-TERMINAL BNP 5980.1 pg/ml (5-125)
[2023-10-05] MEDS: SODIUM CHLORIDE 0.9% 1000 ML INFUS.BAG IV ONE (15:46)
[2023-10-05] MEDS ORDERED: ALBUTEROL SO4 0.083% IH SOL 2.5 MG/3 ML VIAL.NEB. NEB ONE (17:45)
[2023-10-05] MEDS: ALBUTEROL SULFATE 0.021% (0.63 MG/3 ML) VIAL.NEB NEB ONE (17:58)
[2023-10-05] MEDS ORDERED: ACETAMINOPHEN 325 MG TABLET (FP) PO PRN (20:28)
[2023-10-05] MEDS ORDERED: DOCUSATE SODIUM 100 MG CAPSULE (FP) PO PRN (20:28)
[2023-10-06 00:06] VITALS: BMI 24.3
[2023-10-06] MEDS: methylPREDNISolone NA SUCC 40 MG/1 ML VIAL IVPUSH SCH (01:50)
[2023-10-06] MEDS: CARVEDILOL 25 MG TABLET (FP) PO SCH (02:22)
[2023-10-06] MEDS: APIXABAN 5 MG TABLET PO SCH (02:22)
[2023-10-06] MEDS: SODIUM CHLORIDE 1,000 ML IV SCH (03:22)
[2023-10-06] MEDS: ALBUTEROL SO4 0.083% IH SOL 2.5 MG/3 ML VIAL.NEB. NEB SCH (07:30)
[2023-10-06] MEDS: DIGOXIN 0.125 MG TABLET PO SCH (09:06)
[2023-10-06] MEDS: LISINOPRIL 20 MG TABLET PO SCH (09:06)
[2023-10-06 09:22] LABS: HEMATOCRIT 41.7 % (32.4-45.2); HEMOGLOBIN 13.9 GM/dL (10.7-15.3); MCH 29.2 pg (25.7-33.7); MCHC 33.4 g/dl (32.0-36.0); MEAN CELL VOLUME 87.5 fl (80-96); MEAN PLT VOLUME 8.5 fl (7.5-11.1); PLATELET COUNT 145 10^3/uL (134-434); RBC 4.77 M/mm3 (3.60-5.2); RDW 13.7 % (11.6-15.6); WHITE BLOOD COUNT 12.5 K/mm3 (4.0-10.0)
[2023-10-06 09:24] LABS: INR 1.91 (0.83-1.09)
[2023-10-06 09:27] LABS: ACTIVATED PTT 32.4 SECONDS (25.2-36.5)
[2023-10-06 09:38] LABS: POTASSIUM 4.2 mmol/L (3.5-5.1)
[2023-10-06] MEDS: BUDESONIDE/FORMETEROL FUMARATE 160/4.5 mcg INHALER IH SCH (09:47)
[2023-10-06 09:48] LABS: BLOOD UREA NITROGEN 17.6 mg/dL (7-18)
[2023-10-06 09:49] LABS: CALCIUM 9.1 mg/dL (8.5-10.1)
[2023-10-06 09:51] LABS: CREATININE 0.7 mg/dL (0.55-1.3); MAGNESIUM 1.9 mg/dL (1.8-2.4); PHOSPHOROUS 3.5 mg/dL (2.5-4.9)
[2023-10-06 13:22] LABS: ANISOCYTOSIS 0; HELMET CELLS 0; HOWELL-JOLLY BODIES 0; MACROCYTOSIS 0; OVALOCYTE 0; ROULEAU 0; SICKELED CELLS 0; TARGET CELLS 0; TEAR DROP CELLS 0; TOXIC GRANULATION 0
[2023-10-06] MEDS: dilTIAZem HCL 50 MG/10 ML - 10 ML VIAL IVPUSH ONE (19:33)
[2023-10-06] MEDS: MELATONIN 5 MG TABLETS PO SCH (21:16)
[2023-10-06] MEDS: guaiFENesin/D-METHORPHAN HB 10 ML UNIT-DOSE CUPS PO PRN (21:17)
[2023-10-08] MEDS: methylPREDNISolone NA SUCC 40 MG/1 ML VIAL IVPUSH SCH (21:21)
[2023-10-09] MEDS: amLODIPine BESYLATE 5 MG TABLET (FP) PO SCH (09:30)
[2023-10-09 15:05] LABS: HEMATOCRIT 42.9 % (32.4-45.2); HEMOGLOBIN 14.1 GM/dL (10.7-15.3); MCH 28.9 pg (25.7-33.7); MCHC 32.9 g/dl (32.0-36.0); MEAN CELL VOLUME 87.8 fl (80-96); MEAN PLT VOLUME 7.9 fl (7.5-11.1); PLATELET COUNT 142 10^3/uL (134-434); RBC 4.88 M/mm3 (3.60-5.2); RDW 13.5 % (11.6-15.6); WHITE BLOOD COUNT 9.9 K/mm3 (4.0-10.0)
[2023-10-09 15:23] LABS: POTASSIUM 4.5 mmol/L (3.5-5.1)
[2023-10-09 15:25] LABS: CALCIUM 9.2 mg/dL (8.5-10.1)
[2023-10-09 15:26] LABS: BLOOD UREA NITROGEN 20.6 mg/dL (7-18)
[2023-10-09 15:29] LABS: CREATININE 0.6 mg/dL (0.55-1.3)
[2023-10-09 15:30] LABS: BILIRUBIN,TOTAL 0.9 mg/dL (0.2-1)
[2023-10-09 15:31] LABS: TOT PROT 7.2 g/dl (6.4-8.2)
[2023-10-09 15:34] LABS: N-TERMINAL BNP 6580.4 pg/ml (5-125)
[2023-10-09 15:40] LABS: ALBUMIN 3.6 g/dl (3.4-5.0)
[2023-10-09 16:04] LABS: ANISOCYTOSIS 0; HELMET CELLS 0; HOWELL-JOLLY BODIES 0; MACROCYTOSIS 0; OVALOCYTE 0; ROULEAU 0; SICKELED CELLS 0; TARGET CELLS 0; TEAR DROP CELLS 0; TOXIC GRANULATION 0
[2023-10-09] MEDS: FUROSEMIDE 40 MG/4 ML INJECTABLE VIAL IVPUSH ONE (16:12)
[2023-10-10 07:18] LABS: POTASSIUM 3.9 mmol/L (3.5-5.1)
[2023-10-10 07:20] LABS: CALCIUM 9.1 mg/dL (8.5-10.1)
[2023-10-10 07:21] LABS: BLOOD UREA NITROGEN 19.7 mg/dL (7-18)
[2023-10-10 07:24] LABS: CREATININE 0.4 mg/dL (0.55-1.3)
[2023-10-10] MEDS: POTASSIUM CHLORIDE ORAL LIQUID 20 MEQ/15 ML PO ONE (08:28)
[2023-10-10] MEDS: predniSONE 10 MG TABLET (UD) PO SCH (09:41)
[2023-10-10] MEDS: FUROSEMIDE 20 MG TABLET (FP) PO SCH (09:55)
[2023-10-10] MEDS: methylPREDNISolone NA SUCC 40 MG/1 ML VIAL IVPUSH SCH (13:48)
[2023-10-11 01:47] LABS: MAGNESIUM 1.7 mg/dL (1.8-2.4)
[2023-10-11] MEDS: MAGNESIUM OXIDE 400 MG TABLET (FP) PO ONE (02:35)
[2023-10-11 07:08] LABS: POTASSIUM 4.2 mmol/L (3.5-5.1)
[2023-10-11 07:12] LABS: BLOOD UREA NITROGEN 13.1 mg/dL (7-18)
[2023-10-11 07:14] LABS: CREATININE 0.4 mg/dL (0.55-1.3)
[2023-10-11] MEDS: ALBUTEROL SO4 2.5/IPRATROPIUM 0.5 INH SOL 3 ML VIAL.NEB. NEB SCH (15:16)
[2023-10-11 15:19] VITALS: BP 136/67; PULSE 63; RESP 14; TEMP 98.8
== END 2023-10-11 16:31 | DRG 191 ==
LOC: JER 12:14 → JERBED 18:54 → OBSVTOIN 18:54 → J6S 22:51 → J4W 10-06 17:45
PROVIDERS: ADMIT Internal Medicine; ATTEND Family Medicine
DX: J44.1 Chronic obstructive pulmonary disease with (acute) exacerbation (principal); E87.1 Hypo-osmolality and hyponatremia; I48.20 Chronic atrial fibrillation, unspecified; J45.901 Unspecified asthma with (acute) exacerbation; L40.9 Psoriasis, unspecified; K74.60 Unspecified cirrhosis of liver; I11.0 Hypertensive heart disease with heart failure; R91.1 Solitary pulmonary nodule; E78.5 Hyperlipidemia, unspecified; Z85.118 Personal history of other malignant neoplasm of bronchus and lung
CPT/HCPCS: 0241U-QW; 36415; 71045-TC-FY; 80048; 80053; 80162; 82436; 83735; 83880; 83930; 84100; 84133; 84300; 84443; 84484; 85025; 85610; 85730; 93005; 93010; 93306-TC; 94640; 94761; 97116-GP; 97162-GP; 99285-25

== ENCOUNTER 2023-12-18 10:49 | Inpatient (IN) | payer OTHER, MEDICARE ==
[2023-12-18] MEDS ORDERED: methylPREDNISolone NA SUCC 125 MG/2 ML VIAL ONE (11:17)
[2023-12-18] MEDS ORDERED: AZITHROMYCIN IVPB 500 MG/250 ML BAG IVPB ONE (11:17)
[2023-12-18] MEDS ORDERED: ALBUTEROL SO4 2.5/IPRATROPIUM 0.5 INH SOL 3 ML VIAL.NEB. NEB ONE (11:18)
[2023-12-18] MEDS: methylPREDNISolone NA SUCC 125 MG/2 ML VIAL IVPUSH ONE (11:38)
[2023-12-18] MEDS: AZITHROMYCIN IVPB 500 MG in DEXTROSE 5%-WATER - 250 ML IVPB ONE (11:38)
[2023-12-18] MEDS: ALBUTEROL SO4 2.5/IPRATROPIUM 0.5 INH SOL 3 ML VIAL.NEB. NEB SCH ×3 (11:38→16:00)
[2023-12-18 11:56] LABS: HEMATOCRIT 44.5 % (32.4-45.2); HEMOGLOBIN 14.8 GM/dL (10.7-15.3); MCH 29.4 pg (25.7-33.7); MCHC 33.3 g/dl (32.0-36.0); MEAN CELL VOLUME 88.1 fl (80-96); MEAN PLT VOLUME 8.5 fl (7.5-11.1); PLATELET COUNT 119 10^3/uL (134-434); RBC 5.05 M/mm3 (3.60-5.2); RDW 14.4 % (11.6-15.6); WHITE BLOOD COUNT 10.8 K/mm3 (4.0-10.0)
[2023-12-18 11:57] LABS: VENOUS BASE EXCESS 3.1 mmol/L (-2-2); VENOUS O2 SATURATION 30.2 % (70-80); VENOUS PCO2 66.7 mmHg (38-52); VENOUS PH 7.297 (7.310-7.410)
[2023-12-18 12:08] LABS: INR 1.8 (0.83-1.09)
[2023-12-18 12:10] LABS: ACTIVATED PTT 37.1 SECONDS (25.2-36.5)
[2023-12-18 12:33] LABS: POTASSIUM 4.1 mmol/L (3.5-5.1)
[2023-12-18 12:35] LABS: CALCIUM 9.5 mg/dL (8.5-10.1)
[2023-12-18 12:36] LABS: ALBUMIN 3.8 g/dl (3.4-5.0); BLOOD UREA NITROGEN 10.1 mg/dL (7-18); MAGNESIUM 1.8 mg/dL (1.8-2.4)
[2023-12-18 12:38] LABS: ANISOCYTOSIS 0; MACROCYTOSIS 0
[2023-12-18 12:39] LABS: CREATININE 0.5 mg/dL (0.55-1.3)
[2023-12-18 12:40] LABS: TOT PROT 7.1 g/dl (6.4-8.2)
[2023-12-18 12:41] LABS: BILIRUBIN,TOTAL 1.2 mg/dL (0.2-1)
[2023-12-18 12:51] LABS: VENOUS BASE EXCESS 2.4 mmol/L (-2-2); VENOUS O2 SATURATION 27.9 % (70-80); VENOUS PCO2 68.3 mmHg (38-52); VENOUS PH 7.277 (7.310-7.410)
[2023-12-18] MEDS ORDERED: HEPARIN NA (PORCINE) 5,000 UNITS/ML 1ML VIAL SQ SCH (14:00)
[2023-12-18] MEDS: LACTATED RINGERS SOLUTION 1000 ML INFUS.BAG IV ONE (14:27)
[2023-12-18] MEDS: methylPREDNISolone NA SUCC 40 MG/1 ML VIAL IVPUSH SCH (18:21)
[2023-12-18 18:55] LABS: EPI CELLS 1 /uL (0-25.1); HYALINE CASTS 0 /uL (0-3.1); URINE APPEARANCE CLEAR; URINE BACTERIA >9,000 /uL (0-1359); URINE BILIRUBIN NEGATIVE (NEGATIVE); URINE COLOR YELLOW; URINE GLUCOSE (UA) NEGATIVE (NEGATIVE); URINE KETONE NEGATIVE (NEGATIVE); URINE LEUK ESTERASE 2+ (NEGATIVE); URINE NITRITE NEGATIVE (NEGATIVE); URINE PROTEIN NEGATIVE (NEGATIVE); URINE RBC 9 /uL (0-23.9); URINE UROBILINOGEN 0.2 mg/dL (0.2-1.0); URINE WBC 328 /uL (0-25.8)
[2023-12-18] MEDS: APIXABAN 5 MG TABLET PO SCH (21:53)
[2023-12-18] MEDS: CARVEDILOL 25 MG TABLET (FP) PO SCH (21:53)
[2023-12-19] MEDS: PANTOPRAZOLE 40 MG TABLET PO SCH (09:30)
[2023-12-19] MEDS: amLODIPine BESYLATE 5 MG TABLET (FP) PO SCH (09:30)
[2023-12-19 09:54] LABS: HEMATOCRIT 42.7 % (32.4-45.2); HEMOGLOBIN 13.5 GM/dL (10.7-15.3); MCH 28.4 pg (25.7-33.7); MCHC 31.6 g/dl (32.0-36.0); MEAN PLT VOLUME 8.8 fl (7.5-11.1); PLATELET COUNT 109 10^3/uL (134-434); RBC 4.75 M/mm3 (3.60-5.2); RDW 14.2 % (11.6-15.6); WHITE BLOOD COUNT 11.6 K/mm3 (4.0-10.0)
[2023-12-19 10:18] LABS: POTASSIUM 4.3 mmol/L (3.5-5.1)
[2023-12-19 10:25] LABS: CALCIUM 9.6 mg/dL (8.5-10.1)
[2023-12-19 10:26] LABS: ALBUMIN 3.4 g/dl (3.4-5.0); BLOOD UREA NITROGEN 12.5 mg/dL (7-18)
[2023-12-19 10:29] LABS: CREATININE 0.6 mg/dL (0.55-1.3); PHOSPHOROUS 3.3 mg/dL (2.5-4.9)
[2023-12-19 10:31] LABS: BILIRUBIN,TOTAL 0.8 mg/dL (0.2-1); TOT PROT 6.8 g/dl (6.4-8.2)
[2023-12-19 10:33] LABS: ANISOCYTOSIS 0; MACROCYTOSIS 0
[2023-12-19] MEDS: methylPREDNISolone NA SUCC 40 MG/1 ML VIAL IVPUSH SCH ×2 (11:06→15:00)
[2023-12-19] MEDS: AZITHROMYCIN IVPB 250 MG in DEXTROSE 5%-WATER - 250 ML IVPB SCH (11:39)
[2023-12-19] MEDS: FLUTICASONE/UMECLIDIN/VILANTER(200-62.5-25 TRELEGY ELLIPTA) INAHLER IH SCH (13:31)
[2023-12-19] MEDS: ALBUTEROL SO4 0.083% IH SOL 2.5 MG/3 ML VIAL.NEB. NEB PRN (15:00)
[2023-12-19 15:29] VITALS: BMI 16.9
[2023-12-20] MEDS: LEVALBUTEROL HCL 0.63 MG/3 ML VIAL.NEB. IH SCH (13:09)
[2023-12-20] MEDS ORDERED: ACETAMINOPHEN 325 MG TABLET (FP) PO PRN (15:52)
[2023-12-20] MEDS ORDERED: MELATONIN 5 MG TABLETS PO PRN (15:53)
[2023-12-20] MEDS: POLYETHYLENE GLYCOL (HEALTHYLAX) 3350 17 GM PACKET PO SCH (17:57)
[2023-12-20] MEDS: methylPREDNISolone NA SUCC 40 MG/1 ML VIAL IVPUSH SCH (21:25)
[2023-12-21 11:25] LABS: ARTERIAL BLD GAS O2 SATURATION 95.5 % (95-98); ARTERIAL BLOOD GAS BASE EXCESS 7.3 mmol/L (-2-2); ARTERIAL BLOOD GAS PO2 80.1 mmHg (80-100); ARTERIAL BLOOD GAS pH 7.388 (7.350-7.450)
[2023-12-21 11:27] LABS: ALLENS TEST POSITIVE
[2023-12-21 17:49] VITALS: BP 121/62; PULSE 76; RESP 16; TEMP 98.2
== END 2023-12-21 17:46 | disposition home or self-care (01) | DRG 190 ==
LOC: JER 10:49 → JERBED 13:58 → OBSVTOIN 13:58 → J6S 15:20
PROVIDERS: ADMIT Internal Medicine; ATTEND Internal Medicine
DX: J44.1 Chronic obstructive pulmonary disease with (acute) exacerbation (principal); J96.01 Acute respiratory failure with hypoxia; J96.02 Acute respiratory failure with hypercapnia; E87.1 Hypo-osmolality and hyponatremia; I48.20 Chronic atrial fibrillation, unspecified; R64 Cachexia; Z68.1 Body mass index [BMI] 19.9 or less, adult; J30.9 Allergic rhinitis, unspecified; I48.91 Unspecified atrial fibrillation; L40.9 Psoriasis, unspecified; K74.60 Unspecified cirrhosis of liver; I11.0 Hypertensive heart disease with heart failure; R91.1 Solitary pulmonary nodule; I50.9 Heart failure, unspecified; Z85.41 Personal history of malignant neoplasm of cervix uteri; Z85.118 Personal history of other malignant neoplasm of bronchus and lung
CPT/HCPCS: 0241U-QW; 36415; 36600; 71045-TC-FY; 71250-TC; 80053; 81003; 82436; 82803; 82962; 83735; 83880; 83930; 83935; 84100; 84133; 84300; 84443; 84484; 85025; 85610; 85730; 86850; 86900; 86901; 93005; 93010; 94640; 94761; 99285-25

== ENCOUNTER 2024-04-07 04:31 | Day surgery (SDC) | payer OTHER, MEDICARE ==
[2024-04-02 13:32] VITALS: BMI 23.5
[2024-04-07 09:35] LABS: BASO % 0.8 % (0-2.0); EOS % 4.2 % (0-4.5); HEMATOCRIT 43.6 % (32.4-45.2); HEMOGLOBIN 14.5 GM/dL (10.7-15.3); LYMPH % 9.7 % (8-40); MCHC 33.2 g/dl (32.0-36.0); MEAN CELL VOLUME 87.4 fl (80-96); MEAN PLT VOLUME 8.2 fl (7.5-11.1); MONO % 9.8 % (3.8-10.2); NEUT % 75.5 % (42.8-82.8); PLATELET COUNT 101 10^3/uL (134-434); RBC 4.99 M/mm3 (3.60-5.2); RDW 14.1 % (11.6-15.6)
[2024-04-07 09:37] VITALS: TEMP 97.7
[2024-04-07 09:42] LABS: INR 1.13 (0.83-1.09)
[2024-04-07] MEDS ORDERED: FENTANYL CITRATE/PF 50 MCG/ML VIAL ONE (10:12)
[2024-04-07] MEDS ORDERED: MIDAZOLAM HCL 2 MG/2 ML SINGLE DOSE VIAL ONE (10:12)
[2024-04-07] MEDS: SODIUM CHLORIDE 500 ML IV ONE (10:45)
[2024-04-07] MEDS: FENTANYL CITRATE/PF 50 MCG/ML VIAL IVPUSH ONE (11:15)
[2024-04-07] MEDS: MIDAZOLAM HCL 2 MG/2 ML SINGLE DOSE VIAL IVPUSH ONE (11:17)
[2024-04-07 15:43] VITALS: RESP 20
[2024-04-07 17:02] VITALS: BP 112/52; PULSE 53
== END 2024-04-07 14:27 | disposition home or self-care (01) ==
LOC: JRADIR 04:31
PROVIDERS: ATTEND Surgery
PROC: 0BBC3ZX Excision of Right Upper Lung Lobe, Percutaneous Approach, Diagnostic (ICD-10-PCS; principal; 2024-04-07)
DX: C34.11 Malignant neoplasm of upper lobe, right bronchus or lung (principal)
CPT/HCPCS: 32408; 36415; 71046-TC-FY; 85025; 85610; 88305-TC; 88341-TC; 88342-TC